=== PATIENT | female | born 1980 | race African-American/Black ===

== ENCOUNTER → 2016-04-02 | Outpatient (CLI) | payer OTHER | LOC: WI 09:08 | PROVIDERS: ATTEND Nurse Practitioner Psychiatric/Mental Health | DX: Z12.31 Encounter for screening mammogram for malignant neoplasm of breast (principal) | CPT/HCPCS: 77067; G0202 ==

== ENCOUNTER → 2018-06-08 | Outpatient (CLI) | payer OTHER ==
--- NOTE | 2018-06-08 19:59 | RADIOLOGY REPORT (SQ) ---
EXAM DESCRIPTION: CT ABD/PELVIS WITH IV ORAL COMPLETED DATE/TIME: 06/08/2018 7:39 pm REASON FOR STUDY: R10.9 UNSPECIFIED ABDOMINAL PAIN R10.9 UNSPECIFIED ABDOMINAL PAIN COMPARISON: CT stone survey 11/03/2008 TECHNIQUE: CT scan of the abdomen and pelvis performed using helical scanning technique with dynamic intravenous contrast injection. Patient drank oral contrast. Images reviewed with lung, soft tissue , and bone windows. Reconstructed coronal and sagittal MPR images reviewed. Delayed images for evalua tion of the urinary system also acquired. All images stored on PACS. All CT scanners at this facility use dose modulation, iterative reconstruction, and/or weight based d osing when appropriate to reduce radiation dose to as low as reasonably achievable (ALARA). [facility]: Dose Right [facility]: CareDose [facility]: Dose Right [facility]: Teradose 4D [facility]: [place] CONTRAST TYPE AND DOSE: contrast/concentration: Isovue 350.00 mg/ml; Total Contrast Delivered: 89.2 ml; Total Saline Delivered: 22.0 ml RENAL FUNCTION: Creatinine 0.5 RADIATION DOSE: CT Rad equipment meets quality standard of care and radiation dose reduction techniq ues were employed. CTDIvol: 10.7 - 13.6 mGy. DLP: 1317 mGy-cm.. LIMITATIONS: Suboptimal IV contrast bolus FINDINGS: LOWER CHEST: No significant findings. No nodules or infiltrates. LIVER: Normal size. No masses. No dilated ducts. SPLEEN: Normal size. No focal lesions. PANCREAS: No masses. No significant calcifications. No adjacent inflammation or peripancreatic fluid collections. Pancreatic duct not dilated. GALLBLADDER: Surgically absent ADRENAL GLANDS: No significant masses or asymmetry. RIGHT KIDNEY AND URETER: No solid masses. No significant calcifications. No hydronephrosis or hyd roureter. LEFT KIDNEY AND URETER: No solid masses. No significant calcifications. No hydronephrosis or hydr oureter. AORTA AND VESSELS: No aneurysm. No dissection. Renal arteries, SMA, celiac without stenosis. RETROPERITONEUM: No retroperitoneal adenopathy, hemorrhage or masses. BOWEL AND PERITONEAL CAVITY: Post gastric bypass. Patient drank oral contrast which is mostly in non distended small bowel loops. Small amount of stool throughout the colon. No free intraperitoneal ai r or fluid or CT signs of bowel obstruction or diverticulitis APPENDIX: Normal best shown on coronal image 38 and 39 PELVIS: No mass. No free fluid. Normal bladder. Normal size female pelvic organs ABDOMINAL WALL: No masses. No hernias. BONES: No significant or acute findings. OTHER: No other significant finding. IMPRESSION: NO SIGNIFICANT OR ACUTE FINDING IN THE ABDOMEN OR PELVIS ON CT SCAN WITH IV CONTRAST. TECHNICAL DOCUMENTATION: JOB ID: [id number] Quality ID # [id number]: Final reports with documentation of one or more dose reduction techniques (e.g., Au tomated exposure control, adjustment of the mA and/or kV according to patient size, use of iterative reconstruction technique) 2010 [employer]- All Rights Reserved Reading location - IP/workstation name: [email or web address]
== END ==
LOC: RAD 16:20
PROVIDERS: ATTEND Internal Medicine Geriatric Medicine
DX: R10.9 Unspecified abdominal pain (principal)
CPT/HCPCS: 74177

== ENCOUNTER → 2018-06-08 | Outpatient (CLI) | payer OTHER ==
[2018-06-08 17:43] LABS: ALANINE AMINOTRANSFERASE 27 U/L (9-52); ALKALINE PHOSPHATASE 45 U/L (38-126); AMYLASE 69 U/L (30-110); ANION GAP 9 (5-19); ASPARTATE AMINO TRANSFERASE 22 U/L (14-36); BILIRUBIN,DIRECT 0.2 mg/dL (0.0-0.4); BILIRUBIN,TOTAL 0.4 mg/dL (0.2-1.3); BLOOD UREA NITROGEN 12 mg/dL (7-20); CALCIUM 9.4 mg/dL (8.4-10.2); CARBON DIOXIDE 27 mmol/L (22-30); CHLORIDE 102 mmol/L (98-107); GLUCOSE 75 mg/dL (75-110); LIPASE 221.5 U/L (23-300); POTASSIUM 3.5 mmol/L (3.6-5.0); SODIUM 137.9 mmol/L (137-145); TOTAL PROTEIN 7.4 g/dL (6.3-8.2)
== END ==
LOC: OD 16:33
PROVIDERS: ATTEND Internal Medicine Geriatric Medicine
DX: R10.9 Unspecified abdominal pain (principal)
CPT/HCPCS: 36415; 80053; 82150; 83690

== ENCOUNTER → 2018-10-21 | Outpatient (CLI) | payer OTHER ==
--- NOTE | 2018-10-21 10:05 | RADIOLOGY REPORT (SQ) ---
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 TECHNIQUE: Static and dynamic grayscale images acquired of the aorta and stored on PACs. Selected co jeffy Doppler and spectral images recorded. LIMITATIONS: None. FINDINGS: AORTIC CALIBER MAXIMAL PROXIMAL: 2.4 cm. MID: 1.7 cm. DISTAL: 1.7 cm. ILIAC DIAMETER RIGHT: Obscured by overlying bowel gas. LEFT: Obscured by overlying bowel gas. OTHER: No other significant finding. IMPRESSION: NO ABDOMINAL AORTIC ANEURYSM. COMMENT: Aortic aneurysm imaging followup: Negative, no followup necessary. *Based upon the Society for Vascular Surgery Guidelines: J Vasc Surg. 2009 Oct;50(4 Suppl):S2-49 *For aortas of maximum diameter of 2.6-2.9 cm meeting the criteria for AAA (?1.5 x proximal normal se gment) TECHNICAL DOCUMENTATION: JOB ID: [id number] [employer]- All Rights Reserved Reading location - IP/workstation name: [email or web address]
== END ==
LOC: RAD 09:13
PROVIDERS: ATTEND Internal Medicine Geriatric Medicine
DX: Z13.6 Encounter for screening for cardiovascular disorders (principal); E11.43 Type 2 diabetes mellitus with diabetic autonomic (poly)neuropathy
CPT/HCPCS: 76706

== ENCOUNTER 2019-01-18 01:48 | Emergency (ER) | payer OTHER ==
[2019-01-18 02:28] LABS: APPEARANCE,URINE CLEAR; BILIRUBIN,URINE NEGATIVE (NEGATIVE); COLOR,URINE YELLOW; GLUCOSE, URINE NEGATIVE (NEGATIVE); KETONES,URINE NEGATIVE (NEGATIVE); LEUKOCYTE ESTERASE,URINE NEGATIVE (NEGATIVE); NITRITE,URINE NEGATIVE (NEGATIVE); PROTEIN,URINE NEGATIVE (NEGATIVE); URINE SPECIFIC GRAVITY 1.028; UROBILINOGEN,URINE NEGATIVE mg/dL (<2.0)
[2019-01-18 02:30] LABS: ABSOLUTE EOSINOPHILS # (AUTO) 0.1 10^3/uL (0.0-0.6); ABSOLUTE LYMPHOCYTES (AUTO) 2.3 10^3/uL (0.5-4.7); ABSOLUTE MONOCYTES (AUTO) 0.6 10^3/uL (0.1-1.4); ABSOLUTE NEUT (AUTO) 2.6 10^3/uL (1.7-8.2); BASOPHILS % (AUTO) 0.7 % (0-2); EOSINOPHILS % (AUTO) 2.4 % (0-6); HEMATOCRIT 37.7 % (36.0-47.0); HEMOGLOBIN 12.7 g/dL (12.0-15.5); LYMPHOCYTES % (AUTO) 39.9 % (13-45); MEAN CORPUSCULAR HGB CONC 33.6 g/dL (32.0-36.0); MEAN CORPUSCULAR VOLUME 92 fl (80-97); MONOCYTES % (AUTO) 10.8 % (3-13); PLATELET COUNT 164 10^3/uL (150-450); SEGMENTED NEUTROPHILS % (AUTO) 46.2 % (42-78); TOTAL CELLS COUNTED % (AUTO) 100 %; WHITE BLOOD COUNT 5.7 10^3/uL (4.0-10.5)
[2019-01-18 02:42] LABS: ALBUMIN 3.8 g/dL (3.5-5.0); ALKALINE PHOSPHATASE 54 U/L (38-126); ASPARTATE AMINO TRANSFERASE 23 U/L (14-36); BILIRUBIN,DIRECT 0.1 mg/dL (0.0-0.4); BILIRUBIN,TOTAL 0.3 mg/dL (0.2-1.3); BLOOD UREA NITROGEN 14 mg/dL (7-20); CALCIUM 9.2 mg/dL (8.4-10.2); POTASSIUM 3.8 mmol/L (3.6-5.0); TOTAL PROTEIN 6.9 g/dL (6.3-8.2)
[2019-01-18 02:47] LABS: CARBON DIOXIDE 26 mmol/L (22-30); CHLORIDE 109 mmol/L (98-107)
[2019-01-18 02:50] LABS: GLUCOSE 57 mg/dL (75-110)
[2019-01-18 02:51] LABS: ANION GAP 5 (5-19)
[2019-01-18] MEDS ORDERED: DEXTROSE 50%-WATER 25 GM/50 ML DISP.SYRIN IV ONE (03:01)
--- NOTE | 2019-01-18 05:49 | ER Document Report ---
ED General - General Chief Complaint: Abdominal Pain Stated Complaint: ABDOMINAL PAIN Time Seen by Provider: 01/18/19 05:01 Primary Care Provider: NGUYỄN RUBIN MD [Primary Care Provider] - Follow up as needed Notes: 39-year-old female presents emergency department stating that she is "sick". Patient states that she is been having abdominal pain for the past 6 days that she states has been fluctuating and moving around her abdomen. States that it is migratory and unchanged with Mylanta, Leonor-[place] or Pepto-Bismol. She also tried Xifan which she takes for her IBS and it did not help. Denies any vomitin g, fevers, chills, diarrhea or blood in her stool. States that it actually felt somewhat better this evening so she went out but when she got home she started feeling worse. The pain does worsen with food, she has a decreased appetite. Secondarily patient wants to know why she is having night sweats and increased acne. Patient states that this is been going on for over a month and her primary care physician Dr. Rubin has not been able to tell her why it is been going on. TRAVEL OUTSIDE OF THE [place] IN LAST 30 DAYS: No - Related Data Allergies/Adverse Reactions: sertraline HCl [From [email or web address]] Allergy (Verified 02/28/13 14:37) Hives, shortness of breath, diarrhea, vomiting, chest pain Home Medications: duloxetine 60 mg qday. pregabalin 75 mg qday Past Medical History - General Information source: Patient - Social History Smoking Status: Current Some Day Smoker - Occasional cigar Frequency of alcohol use: None Drug Abuse: Marijuana Family History: Reviewed & Not Pertinent Patient has suicidal ideation: No Patient has homicidal ideation: No - Past Medical History Cardiac Medical History: Reports: Hx Hypertension Neurological Medical History: Reports: Hx Migraine Endocrine Medical History: Reports: Hx Diabetes Mellitus Type 2 GI Medical History: Reports: Hx Gastroesophageal Reflux Disease Psychiatric Medical History: Reports: Hx Depression Past Surgical History: Reports: Hx Breast Surgery - lumpectomy left breast, Hx Cholecystectomy, Hx Gastric Bypass Surgery - Immunizations Hx Diphtheria, Pertussis, Tetanus Vaccination: Yes - 2009 Review of Systems - Review of Systems Constitutional: See HPI, Diaphoresis EENT: No symptoms reported Gastrointestinal: See HPI -: Yes All other systems reviewed and negative Physical Exam - Vital signs Vitals: Temp Pulse Resp BP Pulse Ox 97.8 F 68 18 133/65 H 98 01/18/19 01:52 01/18/19 01:52 01/18/19 01:52 01/18/19 01:52 01/18/19 01:52 Interpretation: Normal - Notes Notes: GENERAL: Alert, interacts well. No acute distress. HEAD: Normocephalic, atraumatic EYES: Pupils equal, round and reactive to light, extraocular movements intact. ENT: Oral mucosa moist, tongue midline. NECK: Full range of motion, supple, trachea midline. LUNGS: Clear to auscultation bilaterally, no wheezes, rales or rhonchi, no res piratory distress. HEART: Regular rate and rhythm, no murmurs, gallops, rubs. ABDOMEN: Soft, mild epigastric tenderness palpation, nondistended, bowel sounds present in all 4 quadrants. EXTREMITIES: Moves all 4 extremities spontaneously, no edema, radial and dorsalis pedis pulses 2/4 bilaterally. No cyanosis. NEUROLOGICAL: Alert and oriented x3, normal speech. PSYCH: Normal mood, normal affect. SKIN: Warm, Dry, normal turgor, small amount of acne on the face. Course - Re-evaluation Re-evalutation: 01/18/19 05:50 CBC unremarkable, CMP shows glucose low glucose of 57, patient was in no acute distress, able to tolerate crackers and peanut butter without difficulty, CMP otherwise unremarkable, lipase elevated at 518, test negative, urinalysis negative for blood or infection. Patient does not have a gallbladder. Patient admits history of prior peptic ulcer disease. Patient is given advice on low acid diet, using Carafate and Pepcid but also given information on mild pancreatitis and following a low-fat diet. Patient is agreeable to following both of these plans. Discharged home. - Vital Signs Vital signs: Temp Pulse Resp BP Pulse Ox 97.8 F 68 18 133/65 H 98 01/18/19 01:52 01/18/19 01:52 01/18/19 01:52 01/18/19 01:52 01/18/19 01:52 - Laboratory Result Diagrams: 01/18/19 02:14 01/18/19 02:14 Laboratory results interpreted by me: 01/18/19 01/18/19 01/18/19 02:14 02:14 02:14 RDW 15.0 H Chloride 109 H Glucose 57 L POC Glucose Lipase 518.9 H Urine Ascorbic Acid 40 H 01/18/19 03:53 RDW Chloride Glucose POC Glucose 182 H Lipase Urine Ascorbic Acid Discharge - Discharge Clinical Impression: Pancreatitis Qualifiers: Chronicity: acute Pancreatitis type: unspecified pancreatitis type Acute pancreatitis complication: no infection or necrosis Qualified Code(s): K85.90 - Acute pancreatitis without necrosis or infection, unspecified Condition: Stable Disposition: HOME, SELF-CARE Additional Instructions: Pancreatitis Pancreatitis is an inflammation of the pancreas, an organ at the back of your abdomen. The pancreas produces insulin and enzymes that digest your food. Pancreatitis can be caused by gallstones in the bile duct, by alcohol or viruses, or by excess fat or calcium in the blood stream. Occasionally, pancreatitis occurs when a stomach ulcer vernon through into the pancreas. We try to find the cause of pancreatitis, but some tests can't be done until the pancreas heals. The usual symptoms of pancreatitis are pain in the pit of the stomach that goes straight through to the back, vomiting, and low-grade fever. Severe cases require hospital admission, but many patients with mild pancreatitis do well at home. You will probably need medicine for pain and for vomiting. Sometimes we prescribe medicine to decrease stomach acid secretion and to decrease flow of pancreatic juices. Start with a diet of clear liquids (soda pop, juices). When the pain is decreasing, you can add some simple starches (potato, toast, applesauce). Avoid proteins and fats until you are completely painfree. When you're better, your doctor may suggest treatment to prevent future pancreatitis (such as gallbladder removal). Avoid alcohol forever. Get immediate treatment for any future episodes. Contact your doctor at once or return here if you have increasing pain, shortness of breath, general swelling, increasing size of the abdomen, continued vomiting, muscle spasms, or other new symptoms. Sometimes an ulcer can mimic mild pancreatitis. Please take Pepcid 20 mg twice a day for the next 4 weeks. Please also take the Carafate before every meal. Wait at least an hour after taking your regular medications to take the Carafate or ulcer your regular medications will not absorb. Avoid those foods that bring on your symptoms. For many people, these foods are coffee, chocolate, onions, garlic, and carbonated drinks. Don't use alcohol, aspirin, caffeine, or tobacco. Don't eat late at night -- within 4 hours of bedtime. Don't over-eat. If necessary, elevate the head of your bed about 4 inches so that stomach acid will not roll up into your esophagus. Call the doctor if you develop severe chest pain, inability to swallow fluids, fever, or worsening symptoms. Prescriptions: Ondansetron [Zofran Odt 4 mg Tablet] 1 - 2 tab PO Q4HP PRN #10 tab.rapdis PRN Reason: Sucralfate [Carafate 1 gm Tablet] 1 gm PO ACHS #120 tablet Famotidine [Pepcid 20 mg Tablet] 20 mg PO BID #60 tablet Referrals: NGUYỄN RUBIN MD [Primary Care Provider] - Follow up as needed
[2019-01-18 06:29] VITALS: BP 111/62
== END 2019-01-18 06:30 | disposition home or self-care (01) ==
LOC: ER 01:48
DX: K85.90 Acute pancreatitis without necrosis or infection, unspecified (principal); K58.9 Irritable bowel syndrome, unspecified; R10.9 Unspecified abdominal pain; R10.816 Epigastric abdominal tenderness; R61 Generalized hyperhidrosis; R63.0 Anorexia; L70.9 Acne, unspecified; I10 Essential (primary) hypertension; E11.9 Type 2 diabetes mellitus without complications; F32.9 Major depressive disorder, single episode, unspecified; Z79.899 Other long term (current) drug therapy; Z90.49 Acquired absence of other specified parts of digestive tract; Z87.11 Personal history of peptic ulcer disease; Z88.8 Allergy status to other drugs, medicaments and biological substances
CPT/HCPCS: 99284; 96374; 36415; 82962; 83690; 85025; 81025; 80053; 81001; J3490

== ENCOUNTER 2019-01-23 15:51 | Inpatient (IN) | payer OTHER ==
[2019-01-23] MEDS: ENOXAPARIN SODIUM INJ 40 MG/0.4 ML DISP.SYRIN SUBCUT SCH (16:50)
[2019-01-23] MEDS ORDERED: GLUCAGON,HUMAN RECOMB 1 MG INJ IM PRN (17:00)
[2019-01-23] MEDS ORDERED: DEXTROSE 40% GEL 15 GM TUBE X 2 PO PRN (17:00)
[2019-01-23] MEDS ORDERED: DEXTROSE 50%-WATER SYRINGE 12.5 GM/25 ML DOSE IV PRN (17:00)
[2019-01-23] MEDS ORDERED: DEXTROSE 50%-WATER SYRINGE 25 GM/50 ML DOSE IV PRN (17:00)
[2019-01-23] MEDS ORDERED: DEXTROSE 40% GEL 15 GM TUBE PO PRN (17:00)
[2019-01-23] MEDS: PANTOPRAZOLE SODIUM 40 MG TABLET.DR PO SCH (17:04)
[2019-01-23 17:09] LABS: ABSOLUTE EOSINOPHILS # (AUTO) 0.1 10^3/uL (0.0-0.6); ABSOLUTE LYMPHOCYTES (AUTO) 1.9 10^3/uL (0.5-4.7); ABSOLUTE MONOCYTES (AUTO) 0.6 10^3/uL (0.1-1.4); ABSOLUTE NEUT (AUTO) 3.4 10^3/uL (1.7-8.2); BASOPHILS % (AUTO) 0.4 % (0-2); HEMATOCRIT 35.4 % (36.0-47.0); HEMOGLOBIN 11.6 g/dL (12.0-15.5); LYMPHOCYTES % (AUTO) 31.7 % (13-45); MEAN CORPUSCULAR HEMOGLOBIN 30.3 pg (27.0-33.4); MEAN CORPUSCULAR HGB CONC 32.9 g/dL (32.0-36.0); MEAN CORPUSCULAR VOLUME 92 fl (80-97); PLATELET COUNT 142 10^3/uL (150-450); RED BLOOD COUNT 3.85 10^6/uL (3.72-5.28); RED CELL DISTRIBUTION WIDTH 14.8 % (11.5-14.0); SEGMENTED NEUTROPHILS % (AUTO) 56.9 % (42-78); TOTAL CELLS COUNTED % (AUTO) 100 %
[2019-01-23 17:30] LABS: ALBUMIN 3.3 g/dL (3.5-5.0); ALKALINE PHOSPHATASE 49 U/L (38-126); AMYLASE 73 U/L (30-110); ASPARTATE AMINO TRANSFERASE 20 U/L (14-36); BILIRUBIN,TOTAL 0.3 mg/dL (0.2-1.3); BLOOD UREA NITROGEN 7 mg/dL (7-20); CALCIUM 8.6 mg/dL (8.4-10.2); GLUCOSE 72 mg/dL (75-110); POTASSIUM 3.7 mmol/L (3.6-5.0); TOTAL PROTEIN 6.3 g/dL (6.3-8.2)
[2019-01-23 17:52] LABS: ANION GAP 4 (5-19); CHLORIDE 104 mmol/L (98-107)
[2019-01-23 17:53] LABS: CARBON DIOXIDE 30 mmol/L (22-30)
[2019-01-23] MEDS: INSULIN LISPRO 100 UNIT/ML 3 ML VIAL SUBCUT SCH (18:27)
[2019-01-23] MEDS: MORPHINE SULFATE 10 MG/ML INJ IV PRN ×2 (18:32→21:47)
[2019-01-23] MEDS: DEXTROSE 5%-1/2 NORMAL SALINE 1,000 ML IV PRN (18:32)
[2019-01-23] MEDS: ONDANSETRON HCL INJ/PF 4 MG/2 ML SDV IV PRN (19:41)
--- NOTE | 2019-01-23 23:22 | PDOC H&P ---
History of Present Illness Admission Date/PCP: 01/23/19 15:51 NGUYỄN RUBIN Patient complains of: Abdominal pain History of Present Illness: JESUS HER is a 39 year old female patient known to my practice who presented to the office earlier today as per directive from her recent ED visit on 01/18/2019 for abdominal pain, nausea, and intermittent episodes of vomiting. Her elevation in the ED revealed ongoing symptoms for about 6 days prior to her presentation and self medicating with [id number] medication including Mylanta, Pepto-Bismol, and Leonor-[place] without benefit. Patient reported concern about flare up of her IBS with diarrhea for which she took Xifaxan without relief. She reported to the office today with compliant about no symptom relief and worsening abdominal pain, poor appetite, nausea, and occasional vomiting. She denied any fever but admitted to chills. No diaphoresis. Her ED visit did revealed elevated serum lipase level. I was concern about worsening acute pancreatitis and she was advised hospitalization for further evaluation and management. She denied any alcohol, unusual food or liquid intake, or illicit drug ingestion. Her morbidities are as listed below. Past Medical History Cardiac Medical History: Reports: Hypertension Neurological Medical History: Reports: Migraine Endocrine Medical History: Reports: Diabetes Mellitus Type 2 GI Medical History: Reports: Gastroesophageal Reflux Disease Psychiatric Medical History: Reports: Depression Hematology: Reports: Anemia Past Surgical History Past Surgical History: Reports: Cholecystectomy, Gastric Bypass Surgery Social History Smoking Status: Former Smoker Electronic Cigarette use?: No Last Time Smoked: 2017. Frequency of Alcohol Use: Rare Hx Recreational Drug Use: No Drugs: None Hx Prescription Drug Abuse: No Family History Family History: Reviewed & Not Pertinent Parental Family History Reviewed: Yes Children Family History Reviewed: Yes Sibling(s) Family History Reviewed.: Yes Medication/Allergy Home Medications: Ascorbic Acid [Vitamin C 500 mg Tablet] 500 mg PO DAILY 01/23/19 Duloxetine HCl [Cymbalta 30 mg Capsule.dr] 60 mg PO DAILY 01/23/19 Multivitamin [Tab-A-Nereida (Multiple Vitamin) Tablet] 1 tab PO DAILY 01/23/19 Pregabalin 75 mg PO Q12 01/23/19 Ubidecarenone/Vit E Acet [Co Q-10 100 mg Softgel] 1 cap PO DAILY 01/23/19 Vitamin E (Dl, Acetate) [Vitamin E 400 Unit Capsule] 400 unit PO DAILY 01/23/19 Allergies/Adverse Reactions: sertraline HCl [From Zoloft] Allergy (Verified 02/28/13 14:37) Hives, shortness of breath, diarrhea, vomiting, chest pain Review of Systems Constitutional: PRESENT: anorexia, chills Eyes: ABSENT: visual disturbances, other Ears: ABSENT: hearing changes Nose, Mouth, and Throat: ABSENT: headache(s), mouth pain, sore throat, vertigo Cardiovascular: ABSENT: chest pain, dyspnea on exertion, edema, orthropnea, palpitations Respiratory: ABSENT: cough, hemoptysis Gastrointestinal: PRESENT: abdominal pain, diarrhea, nausea, vomiting. ABSENT: constipation, hematemesis, hematochezia Genitourinary: ABSENT: dysuria, hematuria Musculoskeletal: ABSENT: joint swelling Integumentary: ABSENT: rash, wounds Neurological: ABSENT: abnormal gait, abnormal speech, confusion, dizziness, focal weakness, syncope Psychiatric: ABSENT: anxiety, depression, homidical ideation, suicidal ideation Endocrine: ABSENT: cold intolerance, heat intolerance, polydipsia, polyuria Hematologic/Lymphatic: ABSENT: easy bleeding, easy bruising, lymphadenopathy Physical Exam Vital Signs: Temp Pulse Resp BP Pulse Ox 98.1 F 59 L 17 123/84 100 01/23/19 16:14 01/23/19 19:00 01/23/19 16:14 01/23/19 16:14 01/23/19 16:14 Intake & Output 01/22/19 01/23/19 01/24/19 06:59 06:59 06:59 Intake Total 0 Output Total 0 Balance 0 Weight 82.7 kg General appearance: PRESENT: mild distress - due to abdominal pain, obese Head exam: PRESENT: atraumatic, normocephalic Eye exam: PRESENT: conjunctiva pink, EOMI, PERRLA. ABSENT: scleral icterus Ear exam: PRESENT: normal external ear exam Mouth exam: PRESENT: moist - fair Neck exam: PRESENT: full ROM. ABSENT: JVD, lymphadenopathy, thyromegaly Respiratory exam: PRESENT: clear to auscultation julissa Cardiovascular exam: PRESENT: RRR. ABSENT: diastolic murmur, rubs, systolic murmur Vascular exam: PRESENT: normal capillary refill. ABSENT: pallor GI/Abdominal exam: PRESENT: normal bowel sounds, soft, tenderness - to deep palpation over upper quadrant regions. ABSENT: distended, guarding, mass, organolmegaly, rebound Rectal exam: PRESENT: deferred Musculoskeletal exam: ABSENT: full ROM, normal inspection, tenderness Neurological exam: PRESENT: alert, awake, oriented to person, oriented to place, oriented to time, oriented to situation, CN II-XII grossly intact. ABSENT: motor sensory deficit Psychiatric exam: PRESENT: appropriate affect, normal mood. ABSENT: homicidal ideation, suicidal ideation Skin exam: PRESENT: dry, warm Results Laboratory Results: 01/23/19 16:45 01/23/19 16:45 01/23/19 01/23/19 16:45 16:45 WBC 6.0 RBC 3.85 Hgb 11.6 L Hct 35.4 L MCV 92 MCH 30.3 MCHC 32.9 RDW 14.8 H Plt Count 142 L Seg Neutrophils % 56.9 Sodium 137.9 Potassium 3.7 Chloride 104 Carbon Dioxide 30 Anion Gap 4 L BUN 7 Creatinine 0.50 L Est GFR ( Amer) > 60 Glucose 72 L Calcium 8.6 Total Bilirubin 0.3 AST 20 Alkaline Phosphatase 49 Total Protein 6.3 Albumin 3.3 L Amylase 73 Lipase 324.2 H Assessment & Plan - Diagnosis (1) Acute pancreatitis Qualifiers: Acute pancreatitis complication: unspecified Is this a current diagnosis for this admission?: Yes Plan: See admitting attending physician orders for details about care plan. (2) HTN (hypertension) Qualifiers: Hypertension type: essential hypertension Qualified Code(s): I10 - Essential (primary) hypertension Is this a current diagnosis for this admission?: Yes Plan: See admitting attending physician orders for details about care plan. (3) Diabetes mellitus type 2 in obese Is this a current diagnosis for this admission?: Yes Plan: See admitting attending physician orders for details about care plan. (4) GERD (gastroesophageal reflux disease) Qualifiers: Esophagitis presence: esophagitis presence not specified Qualified Code(s): K21.9 - Gastro-esophageal reflux disease without esophagitis Is this a current diagnosis for this admission?: Yes Plan: See admitting attending physician orders for details about care plan. (5) Depression Qualifiers: Depression Type: unspecified Qualified Code(s): F32.9 - Major depressive disorder, single episode, unspecified Is this a current diagnosis for this admission?: Yes Plan: See admitting attending physician orders for details about care plan. (6) Migraine aura without headache Is this a current diagnosis for this admission?: Yes Plan: See admitting attending physician orders for details about care plan. - Time Time Spent: 50 to 70 Minutes Medications reviewed and adjusted accordingly: Yes Anticipated discharge: Home - Inpatient Certification Based on my medical assessment, after consideration of the patient's comorbidities, presenting symptoms, or acuity I expect that the services needed warrant INPATIENT care.: Yes I certify that my determination is in accordance with my understanding of Medicare's requirements for reasonable and necessary INPATIENT services [42 CFR 412.3e].: Yes Medical Necessity: Significant Comorbidiites Make Outpatient Treatment Too Risky, Need Close Monitoring Due to Risk of Patient Decompensation, Need For IV Fluids, Need For Continuous Telemetry Monitoring, Risk of Complication if Not Cared For in Hospital, Risk of Diagnosis Which Will Require Inpatient Eval/Care/Monitoring Post Hospital Care: D/C Manufacturing Technologist Documentation - Plan Summary Plan Summary: See admitting attending physician orders for details about care plan.
[2019-01-24] MEDS: INSULIN LISPRO 100 UNIT/ML 3 ML VIAL SUBCUT SCH ×4 (00:15→18:23)
[2019-01-24] MEDS: ONDANSETRON HCL INJ/PF 4 MG/2 ML SDV IV PRN ×5 (00:24→23:55)
[2019-01-24] MEDS: MORPHINE SULFATE 10 MG/ML INJ IV PRN ×2 (01:34→05:29)
[2019-01-24] MEDS: DEXTROSE 5%-1/2 NORMAL SALINE 1,000 ML IV PRN ×2 (05:33→14:49)
[2019-01-24 05:39] LABS: ABSOLUTE EOSINOPHILS # (AUTO) 0.1 10^3/uL (0.0-0.6); ABSOLUTE LYMPHOCYTES (AUTO) 2.2 10^3/uL (0.5-4.7); ABSOLUTE MONOCYTES (AUTO) 0.6 10^3/uL (0.1-1.4); ABSOLUTE NEUT (AUTO) 2.8 10^3/uL (1.7-8.2); BASOPHILS % (AUTO) 0.3 % (0-2); EOSINOPHILS % (AUTO) 1.6 % (0-6); HEMOGLOBIN 11.8 g/dL (12.0-15.5); LYMPHOCYTES % (AUTO) 38.9 % (13-45); MEAN CORPUSCULAR HEMOGLOBIN 30.6 pg (27.0-33.4); MEAN CORPUSCULAR HGB CONC 33.6 g/dL (32.0-36.0); MEAN CORPUSCULAR VOLUME 91 fl (80-97); MONOCYTES % (AUTO) 10.3 % (3-13); PLATELET COUNT 130 10^3/uL (150-450); RED BLOOD COUNT 3.85 10^6/uL (3.72-5.28); RED CELL DISTRIBUTION WIDTH 14.7 % (11.5-14.0); SEGMENTED NEUTROPHILS % (AUTO) 48.9 % (42-78); TOTAL CELLS COUNTED % (AUTO) 100 %; WHITE BLOOD COUNT 5.6 10^3/uL (4.0-10.5)
[2019-01-24] MEDS ORDERED: DIPHENHYDRAMINE HCL 50 MG/ML VIAL ONE (05:43)
[2019-01-24 05:54] LABS: ALBUMIN 3.3 g/dL (3.5-5.0); ALKALINE PHOSPHATASE 47 U/L (38-126); AMYLASE 70 U/L (30-110); ANION GAP 5 (5-19); ASPARTATE AMINO TRANSFERASE 40 U/L (14-36); BILIRUBIN,TOTAL 0.5 mg/dL (0.2-1.3); BLOOD UREA NITROGEN 4 mg/dL (7-20); CALCIUM 8.5 mg/dL (8.4-10.2); CARBON DIOXIDE 30 mmol/L (22-30); CHLORIDE 102 mmol/L (98-107); GLUCOSE 76 mg/dL (75-110); POTASSIUM 3.4 mmol/L (3.6-5.0); TOTAL PROTEIN 6.2 g/dL (6.3-8.2)
[2019-01-24] MEDS ORDERED: DIPHENHYDRAMINE HCL 50 MG/ML VIAL IV ONE (06:00)
--- NOTE | 2019-01-24 08:52 | RADIOLOGY REPORT (SQ) ---
EXAM DESCRIPTION: CT ABD/PELVIS WITH IV ORAL COMPLETED DATE/TIME: 01/23/2019 7:34 pm REASON FOR STUDY: acute pancreatitis COMPARISON: 06/08/2018 TECHNIQUE: CT scan of the abdomen and pelvis performed using helical scanning technique with dynamic intravenous contrast injection. No oral contrast. Images reviewed with lung, soft tissue, and bone windows. Reconstructed coronal and sagittal MPR images reviewed. Delayed images for evaluation of the urinary system also acquired. All images stored on PACS. All CT scanners at this facility use dose modulation, iterative reconstruction, and/or weight based d osing when appropriate to reduce radiation dose to as low as reasonably achievable (ALARA). [facility]: Dose Right [facility]: CareDose [facility]: Dose Right [facility]: Teradose 4D [facility]: Therative CONTRAST TYPE AND DOSE: contrast/concentration: Isovue 350.00 mg/ml; Total Contrast Delivered: 94.0 ml; Total Saline Delivered: 71.0 ml RENAL FUNCTION: BUN 7, creatinine 0.50 RADIATION DOSE: CT Rad equipment meets quality standard of care and radiation dose reduction techniq ues were employed. CTDIvol: 9.6 - 12.5 mGy. DLP: 1217 mGy-cm.. LIMITATIONS: Lack of intra and retroperitoneal fat. FINDINGS: LOWER CHEST: No significant findings. No nodules or infiltrates. LIVER: Normal size. No masses. No dilated ducts. SPLEEN: Normal size. No focal lesions. PANCREAS: No masses. No significant calcifications. No adjacent inflammation or peripancreatic fluid collections. Pancreatic duct not dilated. GALLBLADDER: Surgically absent. ADRENAL GLANDS: No significant masses or asymmetry. RIGHT KIDNEY AND URETER: No solid masses. No significant calcifications. No hydronephrosis or hyd roureter. LEFT KIDNEY AND URETER: No solid masses. No significant calcifications. No hydronephrosis or hydr oureter. AORTA AND VESSELS: No aneurysm. No dissection. Renal arteries, SMA, celiac without stenosis. RETROPERITONEUM: No retroperitoneal adenopathy, hemorrhage or masses. BOWEL AND PERITONEAL CAVITY: No masses or inflammatory changes. No free fluid or peritoneal masses. APPENDIX: Normal. PELVIS: There is a small amount of free fluid the pelvis. ABDOMINAL WALL: No masses. No hernias. BONES: No significant or acute findings. OTHER: No other significant finding. IMPRESSION: Limited study due to lack of intra or retroperitoneal fat. There is a small amount of f ree fluid the pelvis. This is nonspecific. No CT evidence of acute pancreatitis. TECHNICAL DOCUMENTATION: JOB ID: [id number] Quality ID # [id number]: Final reports with documentation of one or more dose reduction techniques (e.g., Au tomated exposure control, adjustment of the mA and/or kV according to patient size, use of iterative reconstruction technique) 2010 [employer]- All Rights Reserved Reading location - IP/workstation name: [email or web address]
[2019-01-24] MEDS: POTASSI CL 20 MEQ/50 ML RIDER 20 MEQ/50 ML RTUPB IV SCH ×3 (09:31→14:49)
[2019-01-24] MEDS: ENOXAPARIN SODIUM INJ 40 MG/0.4 ML DISP.SYRIN SUBCUT SCH (09:32)
[2019-01-24] MEDS: PANTOPRAZOLE SODIUM 40 MG TABLET.DR PO SCH (09:32)
[2019-01-24] MEDS: OXYCODONE-ACETAMINOPHEN 5-325 MG TABLET PO PRN ×4 (10:48→23:55)
[2019-01-24] MEDS ORDERED: SIMETHICONE 80 MG TAB.CHEW PO ONE (23:30)
[2019-01-25] MEDS: INSULIN LISPRO 100 UNIT/ML 3 ML VIAL SUBCUT SCH ×4 (03:26→18:00)
[2019-01-25 05:07] LABS: ABSOLUTE EOSINOPHILS # (AUTO) 0.2 10^3/uL (0.0-0.6); ABSOLUTE LYMPHOCYTES (AUTO) 1.8 10^3/uL (0.5-4.7); ABSOLUTE MONOCYTES (AUTO) 0.5 10^3/uL (0.1-1.4); ABSOLUTE NEUT (AUTO) 2.1 10^3/uL (1.7-8.2); BASOPHILS % (AUTO) 0.6 % (0-2); EOSINOPHILS % (AUTO) 4.7 % (0-6); HEMATOCRIT 36.1 % (36.0-47.0); LYMPHOCYTES % (AUTO) 37.6 % (13-45); MEAN CORPUSCULAR HEMOGLOBIN 30.2 pg (27.0-33.4); MEAN CORPUSCULAR HGB CONC 33.2 g/dL (32.0-36.0); MEAN CORPUSCULAR VOLUME 91 fl (80-97); MONOCYTES % (AUTO) 11.7 % (3-13); PLATELET COUNT 130 10^3/uL (150-450); RED BLOOD COUNT 3.97 10^6/uL (3.72-5.28); RED CELL DISTRIBUTION WIDTH 14.6 % (11.5-14.0); SEGMENTED NEUTROPHILS % (AUTO) 45.4 % (42-78); TOTAL CELLS COUNTED % (AUTO) 100 %; WHITE BLOOD COUNT 4.7 10^3/uL (4.0-10.5)
[2019-01-25 05:34] LABS: BLOOD UREA NITROGEN 3 mg/dL (7-20); CALCIUM 8.8 mg/dL (8.4-10.2); CARBON DIOXIDE 29 mmol/L (22-30); CHLORIDE 105 mmol/L (98-107); GLUCOSE 92 mg/dL (75-110); POTASSIUM 3.6 mmol/L (3.6-5.0)
[2019-01-25 05:41] LABS: ANION GAP 5 (5-19)
[2019-01-25] MEDS: ENOXAPARIN SODIUM INJ 40 MG/0.4 ML DISP.SYRIN SUBCUT SCH (09:20)
[2019-01-25] MEDS: PANTOPRAZOLE SODIUM 40 MG TABLET.DR PO SCH (09:39)
[2019-01-25] MEDS: DEXTROSE 5%-1/2 NORMAL SALINE 1,000 ML IV PRN (09:39)
[2019-01-25 14:17] LABS: APPEARANCE,URINE CLEAR; BILIRUBIN,URINE NEGATIVE (NEGATIVE); COLOR,URINE COLORLESS; GLUCOSE, URINE NEGATIVE (NEGATIVE); KETONES,URINE NEGATIVE (NEGATIVE); LEUKOCYTE ESTERASE,URINE NEGATIVE (NEGATIVE); NITRITE,URINE NEGATIVE (NEGATIVE); PROTEIN,URINE NEGATIVE (NEGATIVE); URINE SPECIFIC GRAVITY 1.002; UROBILINOGEN,URINE NEGATIVE mg/dL (<2.0)
[2019-01-25] MEDS: OXYCODONE-ACETAMINOPHEN 5-325 MG TABLET PO PRN ×2 (18:41→22:24)
[2019-01-25] MEDS: SIMETHICONE 80 MG TAB.CHEW PO SCH (21:29)
[2019-01-26] MEDS: INSULIN LISPRO 100 UNIT/ML 3 ML VIAL SUBCUT SCH ×4 (04:40→17:24)
[2019-01-26] MEDS: PANTOPRAZOLE SODIUM 40 MG TABLET.DR PO SCH (09:10)
[2019-01-26] MEDS: ENOXAPARIN SODIUM INJ 40 MG/0.4 ML DISP.SYRIN SUBCUT SCH (09:10)
[2019-01-26] MEDS: SIMETHICONE 80 MG TAB.CHEW PO SCH ×3 (09:10→18:07)
[2019-01-26] MEDS: OXYCODONE-ACETAMINOPHEN 5-325 MG TABLET PO PRN (12:01)
[2019-01-26] MEDS: DEXTROSE 5%-1/2 NORMAL SALINE 1,000 ML IV PRN (18:07)
[2019-01-26] MEDS ORDERED: MAGNESIUM CITRATE 296 ML BOTTLE PO ONE (20:30)
--- NOTE | 2019-01-26 21:32 | PDOC PROGRESS REPORT ---
Subjective Progress Note for:: 01/24/19 Subjective:: Less intense abdominal pain. She reported fairly controlled abdominal pain on current treatment regimen. Her nausea is adequately controlled on IV Zofran. No vomiting. No fever, chills, chest pain or difficulty with breathing. Reason For Visit: ACUTE PANCREATITIS,H/O DIABETES MELLITUS WITH C Physical Exam Vital Signs: Temp Pulse Resp BP Pulse Ox 97.5 F 58 L 20 115/81 100 01/24/19 03:05 01/24/19 07:00 01/24/19 03:05 01/24/19 03:05 01/24/19 03:05 Intake & Output 01/23/19 01/24/19 01/25/19 06:59 06:59 06:59 Intake Total 1000 Output Total 0 Balance 1000 Weight 82.7 kg General appearance: PRESENT: no acute distress Head exam: PRESENT: atraumatic, normocephalic Eye exam: PRESENT: conjunctiva pink, EOMI, PERRLA. ABSENT: scleral icterus Ear exam: PRESENT: normal external ear exam Mouth exam: PRESENT: moist Respiratory exam: PRESENT: clear to auscultation julissa Cardiovascular exam: PRESENT: RRR. ABSENT: diastolic murmur, rubs, systolic murmur Vascular exam: ABSENT: pallor GI/Abdominal exam: PRESENT: normal bowel sounds, soft, tenderness - LUQ and epigastric region. ABSENT: distended, guarding, mass, organolmegaly, rebound Extremities exam: ABSENT: pedal edema Neurological exam: PRESENT: alert, awake, oriented to person, oriented to place, oriented to time, oriented to situation, CN II-XII grossly intact. ABSENT: motor sensory deficit Psychiatric exam: PRESENT: appropriate affect, normal mood. ABSENT: homicidal ideation, suicidal ideation Skin exam: PRESENT: dry, warm Results Laboratory Results: 01/24/19 04:13 01/24/19 04:13 01/23/19 01/23/19 01/24/19 16:45 16:45 04:13 WBC 6.0 5.6 RBC 3.85 3.85 Hgb 11.6 L 11.8 L Hct 35.4 L 35.0 L MCV 92 91 MCH 30.3 30.6 MCHC 32.9 33.6 RDW 14.8 H 14.7 H Plt Count 142 L 130 L Seg Neutrophils % 56.9 48.9 Sodium 137.9 Potassium 3.7 Chloride 104 Carbon Dioxide 30 Anion Gap 4 L BUN 7 Creatinine 0.50 L Est GFR ( Amer) > 60 Glucose 72 L Calcium 8.6 Total Bilirubin 0.3 AST 20 Alkaline Phosphatase 49 Total Protein 6.3 Albumin 3.3 L Amylase 73 Lipase 324.2 H 01/24/19 04:13 WBC RBC Hgb Hct MCV MCH MCHC RDW Plt Count Seg Neutrophils % Sodium 137.2 Potassium 3.4 L Chloride 102 Carbon Dioxide 30 Anion Gap 5 BUN 4 L Creatinine 0.48 L Est GFR ( Amer) > 60 Glucose 76 Calcium 8.5 Total Bilirubin 0.5 AST 40 H Alkaline Phosphatase 47 Total Protein 6.2 L Albumin 3.3 L Amylase 70 Lipase 205.3 Assessment & Plan - Diagnosis (1) Acute pancreatitis Qualifiers: Acute pancreatitis complication: unspecified Is this a current diagnosis for this admission?: Yes (2) HTN (hypertension) Qualifiers: Hypertension type: essential hypertension Qualified Code(s): I10 - Essential (primary) hypertension Is this a current diagnosis for this admission?: Yes (3) Diabetes mellitus type 2 in obese Is this a current diagnosis for this admission?: Yes (4) GERD (gastroesophageal reflux disease) Qualifiers: Esophagitis presence: esophagitis presence not specified Qualified Code(s): K21.9 - Gastro-esophageal reflux disease without esophagitis Is this a current diagnosis for this admission?: Yes (5) Depression Qualifiers: Depression Type: unspecified Qualified Code(s): F32.9 - Major depressive disorder, single episode, unspecified Is this a current diagnosis for this admission?: Yes (6) Migraine aura without headache Is this a current diagnosis for this admission?: Yes - Time Time Spent with patient: 25-34 minutes Medications reviewed and adjusted accordingly: Yes Anticipated discharge: Home Within: within 48 hours - Inpatient Certification Based on my medical assessment, after consideration of the patient's comorbidities, presenting symptoms, or acuity I expect that the services needed warrant INPATIENT care.: Yes I certify that my determination is in accordance with my understanding of Medicare's requirements for reasonable and necessary INPATIENT services [42 CFR 412.3e].: Yes Medical Necessity: Significant Comorbidiites Make Outpatient Treatment Too Risky, Need Close Monitoring Due to Risk of Patient Decompensation, Need For IV Fluids, Need for Pain Control, Risk of Complication if Not Cared For in Hospital, Risk of Diagnosis Which Will Require Inpatient Eval/Care/Monitoring Post Hospital Care: D/C Instructor Nurse Documentation - Plan Summary Plan Summary: Start on clear liquid diet with DM restrictions to level 4. D/C IV Morphine. Start on Percocet 5/325 mg p.o q 4 hours prn for pain management. Patient will receive potassium replacement therapy. Obtain Mag level. Repeat CBC with diff, BMP and Lipase level in AM.
--- NOTE | 2019-01-26 21:44 | PDOC PROGRESS REPORT ---
Subjective Progress Note for:: 01/25/19 Subjective:: Patient continue to express ongoing abdominal pain and episodes of nausea. She denied associated vomiting. Patient reported abdominal bloating and excess gas discomfort. No fever, chills, chest pain or difficulty with breathing. Reason For Visit: PERSISTENT ABDOMINAL PAIN, NAUSEA, ACUTE PANCREATI Physical Exam Vital Signs: Temp Pulse Resp BP Pulse Ox 98.2 F 68 16 110/78 100 01/26/19 11:19 01/26/19 14:00 01/26/19 11:19 01/26/19 11:19 01/26/19 11:19 Intake & Output 01/25/19 01/26/19 01/27/19 06:59 06:59 06:59 Intake Total 4968 3335 1280 Balance 4968 3335 1280 Weight 80.7 kg 80.3 kg Physical Exam: General appearance: PRESENT: no acute distress Head exam: PRESENT: atraumatic, normocephalic Eye exam: PRESENT: conjunctiva pink. ABSENT: pallor, scleral icterus Ear exam: PRESENT: normal external ear exam Mouth exam: PRESENT: moist Respiratory exam: PRESENT: clear to auscultation julissa Cardiovascular exam: PRESENT: RRR. ABSENT: diastolic murmur, rubs, systolic murmur GI/Abdominal exam: PRESENT: normal bowel sounds, soft, tenderness - epigastric and lower quadrants. ABSENT: distended, guarding, mass, organomegaly, rebound Extremities exam: ABSENT: pedal edema Neurological exam: PRESENT: alert, awake, oriented to person, oriented to place, oriented to time, oriented to situation, CN II-XII grossly intact. ABSENT: motor sensory deficit Psychiatric exam: PRESENT: appropriate affect, normal mood. ABSENT: homicidal ideation, suicidal ideation Skin exam: PRESENT: dry, warm Results Laboratory Results: 01/25/19 04:10 01/25/19 04:10 Impressions: Abdomen/Pelvis CT 01/23/19 00:00 IMPRESSION: Limited study due to lack of intra or retroperitoneal fat. There i s a small amount of free fluid the pelvis. This is nonspecific. No CT evidence of acute pancreatitis. Assessment & Plan - Diagnosis (1) Acute pancreatitis Qualifiers: Acute pancreatitis complication: unspecified Is this a current diagnosis for this admission?: Yes (2) HTN (hypertension) Qualifiers: Hypertension type: essential hypertension Qualified Code(s): I10 - Essential (primary) hypertension Is this a current diagnosis for this admission?: Yes (3) Diabetes mellitus type 2 in obese Is this a current diagnosis for this admission?: Yes (4) GERD (gastroesophageal reflux disease) Qualifiers: Esophagitis presence: esophagitis presence not specified Qualified Code(s): K21.9 - Gastro-esophageal reflux disease without esophagitis Is this a current diagnosis for this admission?: Yes (5) Depression Qualifiers: Depression Type: unspecified Qualified Code(s): F32.9 - Major depressive disorder, single episode, unspecified Is this a current diagnosis for this admission?: Yes (6) Migraine aura without headache Is this a current diagnosis for this admission?: Yes - Time Time Spent with patient: 35 or more minutes Level of Care: IMCU Medications reviewed and adjusted accordingly: Yes Anticipated discharge: Home Within: Other - Inpatient Certification Based on my medical assessment, after consideration of the patient's c omorbidities, presenting symptoms, or acuity I expect that the services needed warrant INPATIENT care.: Yes I certify that my determination is in accordance with my understanding of Medicare's requirements for reasonable and necessary INPATIENT services [42 CFR 412.3e].: Yes Medical Necessity: Significant Comorbidiites Make Outpatient Treatment Too Risky, Need Close Monitoring Due to Risk of Patient Decompensation, Need For IV Fluids, Need For Continuous Telemetry Monitoring, Need for Pain Control, Risk of Complication if Not Cared For in Hospital, Risk of Diagnosis Which Will Require Inpatient Eval/Care/Monitoring Post Hospital Care: D/C Campaign Marketing Manager Documentation - Plan Summary Plan Summary: Start on Simethicone 120 mg po qpchs for reported excess gas and distention. Continue current medication management. Advance diet to mechanical soft consistency as tolerated. Follow up on GI consultation with Dr. Rosenthal for possible endoscopic evaluation in view if her surgical history including gastric bypass and concern for gastric ulceration.
--- NOTE | 2019-01-26 21:52 | PDOC PROGRESS REPORT ---
Subjective Progress Note for:: 01/26/19 Subjective:: Patient reported persistent abdominal bloating and excess gas discomfort, abdominal pain and episodes of nausea. She denied vomiting. No bowel movement but admitted to poor po intake. No fever or chills. No chest pain or difficulty with breathing. Reason For Visit: PERSISTENT ABDOMINAL PAIN, NAUSEA, ACUTE PANCREATI Physical Exam Vital Signs: Temp Pulse Resp BP Pulse Ox 98.2 F 68 16 110/78 100 01/26/19 11:19 01/26/19 14:00 01/26/19 11:19 01/26/19 11:19 01/26/19 11:19 Intake & Output 01/25/19 01/26/19 01/27/19 06:59 06:59 06:59 Intake Total 4968 3335 1280 Balance 4968 3335 1280 Weight 80.7 kg 80.3 kg Physical Exam: General appearance: PRESENT: no acute distress Head exam: PRESENT: atraumatic, normocephalic Eye exam: PRESENT: conjunctiva pink. ABSENT: pallor, scleral icterus Ear exam: PRESENT: normal external ear exam Mouth exam: PRESENT: moist Respiratory exam: PRESENT: clear to auscultation julissa Cardiovascular exam: PRESENT: RRR. ABSENT: diastolic murmur, rubs, systolic murmur GI/Abdominal exam: PRESENT: normal bowel sounds, soft, tenderness - epigastric and lower quadrants. ABSENT: distended, guarding, mass, organomegaly, rebound Extremities exam: ABSENT: pedal edema Neurological exam: PRESENT: alert, awake, oriented to person, oriented to place, oriented to time, oriented to situation, CN II-XII grossly intact. ABSENT: motor sensory deficit Psychiatric exam: PRESENT: appropriate affect, normal mood. ABSENT: homicidal ideation, suicidal ideation Skin exam: PRESENT: dry, warm Results Laboratory Results: 01/25/19 04:10 01/25/19 04:10 Impressions: Abdomen/Pelvis CT 01/23/19 00:00 IMPRESSION: Limited study due to lack of intra or retroperitoneal fat. There is a small amount of free fluid the pelvis. This is nonspecific. No CT evidence of acute pancreatitis. Assessment & Plan - Diagnosis (1) Acute pancreatitis Qualifiers: Acute pancreatitis complication: unspecified Is this a current diagnosis for this admission?: Yes (2) HTN (hypertension) Qualifiers: Hypertension type: essential hypertension Qualified Code(s): I10 - Essential (primary) hypertension Is this a current diagnosis for this admission?: Yes (3) Diabetes mellitus type 2 in obese Is this a current diagnosis for this admission?: Yes (4) GERD (gastroesophageal reflux disease) Qualifiers: Esophagitis presence: esophagitis presence not specified Qualified Code(s): K21.9 - Gastro-esophageal reflux disease without esophagitis Is this a current diagnosis for this admission?: Yes (5) Depression Qualifiers: Depression Type: unspecified Qualified Code(s): F32.9 - Major depressive disorder, single episode, unspecified Is this a current diagnosis for this admission?: Yes (6) Migraine aura without headache Is this a current diagnosis for this admission?: Yes - Time Time Spent with patient: 35 or more minutes Level of Care: IMCU Medications reviewed and adjusted accordingly: Yes Anticipated discharge: Home Within: Other - Inpatient Certification Based on my medical assessment, after consideration of the patient's comorbidities, presenting symptoms, or acuity I expect that the services needed warrant INPATIENT care.: Yes I certify that my determination is in accordance with my understanding of Medicare's requirements for reasonable and necessary INPATIENT services [42 CFR 412.3e].: Yes Medical Necessity: Significant Comorbidiites Make Outpatient Treatment Too Risky, Need Close Monitoring Due to Risk of Patient Decompensation, Need For IV Fluids, Need For Continuous Telemetry Monitoring, Need for Pain Control, Risk of Complication if Not Cared For in Hospital, Risk of Diagnosis Which Will Require Inpatient Eval/Care/Monitoring Post Hospital Care: D/C Clinical Law Professor Documentation - Plan Summary Plan Summary: Follow up on GI consultation with Dr. Rosenthal. I discussed case with him tonight. Possible endoscopic evaluation tomorrow. Continue current medication management.
[2019-01-27] MEDS: SIMETHICONE 80 MG TAB.CHEW PO SCH ×5 (00:03→21:17)
[2019-01-27] MEDS: INSULIN LISPRO 100 UNIT/ML 3 ML VIAL SUBCUT SCH ×6 (00:03→21:15)
[2019-01-27] MEDS: OXYCODONE-ACETAMINOPHEN 5-325 MG TABLET PO PRN ×2 (00:05→21:24)
[2019-01-27] MEDS ORDERED: PEG 3350/NA SULF,BICARB,CL/KCL 4000 ML ONE (02:40)
[2019-01-27] MEDS ORDERED: PEG 3350/NA SULF,BICARB,CL/KCL 4000 ML PO ONE (07:00)
[2019-01-27] MEDS: PANTOPRAZOLE SODIUM 40 MG TABLET.DR PO SCH (09:12)
[2019-01-27] MEDS: ENOXAPARIN SODIUM INJ 40 MG/0.4 ML DISP.SYRIN SUBCUT SCH (09:23)
[2019-01-27] MEDS: DEXTROSE 5%-1/2 NORMAL SALINE 1,000 ML IV PRN (10:13)
[2019-01-27] MEDS ORDERED: DIPHENHYDRAMINE HCL 50 MG/ML VIAL ONE (13:59)
[2019-01-27] MEDS ORDERED: NALOXONE HCL INJ/PF 0.4 MG/1 ML SDV ONE (13:59)
[2019-01-27] MEDS ORDERED: ONDANSETRON HCL INJ/PF 4 MG/2 ML SDV ONE (13:59)
[2019-01-27] MEDS ORDERED: FLUMAZENIL INJ 0.5 MG/5 ML VIAL ONE (14:00)
[2019-01-27] MEDS ORDERED: EPINEPHRINE INJ 1 MG/10 ML DISP.SYRIN ONE (14:00)
[2019-01-27] MEDS ORDERED: GLUCAGON,HUMAN RECOMB 1 MG INJ ONE (14:00)
[2019-01-27] MEDS: MIDAZOLAM 2 MG/2 ML INJ ONE ×3 (15:02→15:18)
[2019-01-27] MEDS: FENTANYL CITRATE INJ/PF 100 MCG/2 ML AMPUL ONE ×2 (15:04→15:40)
--- NOTE | 2019-01-27 15:43 | PDOC CONSULTATION ---
Consultation Consult Date: 01/26/19 Provider Consulted: TERRANCE HERMAN History of Present Illness Admission Date/PCP: 01/25/19 20:57 NGUYỄN RUBIN History of Present Illness: JESUS HER is a 39 year old femalePatient who was admitted on 01/25/2019 with abdominal pain. She has a chronic history of abdominal pain and fossa-2008 with similar complaints. She was last seen in my office in 2013. Previous EGD and colonoscopy have been unremarkable and she has been diagnosed with IBS. Her pain has been worsening lately. She has pain every day, with or without eating and lasting between 5 minutes and many hours. She has some nausea but no vomiting. Her bowels has been alternating between diarrhea and constipation and has been like this for many years. She has a history of depression. She was seen at the emergency room on 01/18/2019 with similar illness and her lipase was slightly elevated at 518. LFTs were normal and CBC was normal though she has developed a slight thrombocytopenia since admission. His CT scan of her abdomen and pelvis on 01/23/2019 showed no evidence of pancreatitis. There was small amount of free fluid in the pelvis. Past Medical History Cardiac Medical History: Reports: Hypertension Neurological Medical History: Reports: Migraine Denies: Seizures Endocrine Medical History: Reports: Diabetes Mellitus Type 2 GI Medical History: Reports: Gastroesophageal Reflux Disease Psychiatric Medical History: Reports: Depression Hematology: Reports: Anemia Past Surgical History Past Surgical History: Reports: Cholecystectomy, Gastric Bypass Surgery Denies: Hysterectomy Social History Smoking Status: Former Smoker Electronic Cigarette use?: No Last Time Smoked: 2017. Frequency of Alcohol Use: Rare Hx Recreational Drug Use: No Drugs: None Hx Prescription Drug Abuse: No - Advance Directive Resuscitation Status: Full Code Family History Family History: Reviewed & Not Pertinent Parental Family History Reviewed: No Children Family History Reviewed: NA Sibling(s) Family History Reviewed.: NA Medication/Allergy Home Medications: Ascorbic Acid [Vitamin C 500 mg Tablet] 500 mg PO DAILY 01/23/19 Duloxetine HCl [Cymbalta 30 mg Capsule.] 60 mg PO DAILY 01/23/19 Multivitamin [Tab-A-Nereida (Multiple Vitamin) Tablet] 1 tab PO DAILY 01/23/19 Pregabalin 75 mg PO Q12 01/23/19 Ubidecarenone/Vit E Acet [Co Q-10 100 mg Softgel] 1 cap PO DAILY 01/23/19 Vitamin E (Dl, Acetate) [Vitamin E 400 Unit Capsule] 400 unit PO DAILY 01/23/19 Allergies/Adverse Reactions: sertraline HCl [From Zoloft] Allergy (Verified 02/28/13 14:37) Hives, shortness of breath, diarrhea, vomiting, chest pain Review of Systems All systems: reviewed and no additional remarkable complaints except as stated Physical Exam Vital Signs: Temp Pulse Resp BP Pulse Ox 97.6 F 64 18 110/65 100 01/27/19 14:30 01/27/19 15:35 01/27/19 15:35 01/27/19 15:35 01/27/19 15:35 Intake & Output 01/26/19 01/27/19 01/28/19 06:59 06:59 06:59 Intake Total 3335 2520 Balance 3335 2520 Weight 80.3 kg 81.3 kg Exam: General: Patient is alert and looks well. HEENT: There is no pallor or jaundice. PERRLA. Oropharynx normal Respiratory: No chest deformity. No respiratory distress. Chest wall palpitation was unremarkable. Breath sounds were normal Cardiovascular: Heart sounds 1 and 2 normal with no murmurs. Abdominal: Not distended. Soft and nontender. Liver and spleen not palpable. No ascites demonstrated. Bowel sounds active. Rectal examination was deferred. Extremities: No edema Neurological: Alert and oriented x4. Grossly nonfocal. Normal speech Skin: No significant rash Psychological: Normal affect Results Laboratory Results: 01/25/19 04:10 01/25/19 04:10 Impressions: Abdomen/Pelvis CT 01/23/19 00:00 IMPRESSION: Limited study due to lack of intra or retroperitoneal fat. There is a small amount of free fluid the pelvis. This is nonspecific. No CT evidence of acute pancreatitis. Assessment & Plan - Diagnosis (1) Abdominal pain Is this a current diagnosis for this admission?: Yes Plan: She has chronic abdominal pain which I suspect is from her irritable bowel syndrome. She has been having more pain lately and other pathologies will need to be ruled out by EGD and colonoscopy. I will suggest an anticholinergic if her endoscopies are unremarkable in addition to fiber supplements. An antianxiety/depression may also be useful (2) Irritable bowel syndrome (IBS) Qualifiers: Irritable bowel syndrome type: with both diarrhea and constipation Qualified Code(s): K58.2 - Mixed irritable bowel syndrome Is this a current diagnosis for this admission?: Yes Plan: Use fiber supplements every day (3) Nausea Is this a current diagnosis for this admission?: Yes (4) Elevated lipase Is this a current diagnosis for this admission?: Yes Plan: I doubt any clinical significance to her slightly elevated lipase especially with her chronic symptoms and unremarkable CAT scan
--- NOTE | 2019-01-27 15:46 | Operative Report ---
Operative Report DATE OF SURGERY: 01/27/19 Operative Report: Pre-op diagnosis: Abdominal pain Post-op diagnosis: 1. Normal EGD status post gastric bypass 2. Polyps in the sigmoid colon 3. Internal hemorrhoids Surgery: Upper endoscopy biopsy and Colonoscopy and polypectomy Medications: Versed 4mg, Fentanyl 150mcg IV push Tissue removed: Gastric remnant biopsy and colon polyp Procedure: After informed consent obtained from patient, patient's pharynx was sprayed with Hurricane and conscious sedation was achieved. The upper endoscope was then inserted into the esophagus under direct vision and advanced into the stomach and further into the jejunum. The jejunum was examined up to 20 cm. A digital rectal examination was performed and this was unremarkable. The colonoscope was inserted into the rectum and advanced to the cecum. The appendiceal orifice and the terminal ileum were both identified. The mucosa was examined into details as the colonoscope was slowly pulled out of the patient. The endoscope was retroflexed in the rectum. Patient tolerated the procedure well. Findings Esophagus: Normal Gastric remnant: Normal with normal anastomosis Cecum: Normal Ascending colon: Normal Transverse colon: Normal Descending colon: Normal Sigmoid colon: Two 4 mm polyps removed with a cold snare Rectum: Normal except for internal hemorrhoids Plan: Await pathology. Start patient on Robinul Forte 1 twice a day for the next month or 2 and then as needed. Fiber supplements twice a day. Consider low-dose antidepressant OPERATION: .
[2019-01-27] MEDS ORDERED: DEXTROSE 50%-WATER 25 GM/50 ML DISP.SYRIN IV PRN ×2 (18:16)
[2019-01-27] MEDS ORDERED: GLUCAGON,HUMAN RECOMB 1 MG INJ IM PRN (18:16)
[2019-01-27] MEDS ORDERED: DEXTROSE 40% GEL 15 GM TUBE PO PRN ×2 (18:16)
[2019-01-27] MEDS: GLYCOPYRROLATE 1 MG TABLET PO SCH (18:38)
[2019-01-27] MEDS: VENLAFAXINE HCL 37.5 MG CAP.SR.24H PO SCH (18:38)
--- NOTE | 2019-01-27 18:39 | PDOC PROGRESS REPORT ---
Subjective Progress Note for:: 01/27/19 Subjective:: Patient is post EGD and Colonoscopy with normal upper and sigmoid polypectomy. Patient reported abdominal discomfort and pain. No nausea or vomiting. No fever or chills. No chest pain or difficulty with breathing. Reason For Visit: PERSISTENT ABDOMINAL PAIN, NAUSEA, ACUTE PANCREATI Physical Exam Vital Signs: Temp Pulse Resp BP Pulse Ox 98.1 F 59 L 20 118/83 99 01/27/19 16:00 01/27/19 16:00 01/27/19 16:00 01/27/19 16:00 01/27/19 16:00 Intake & Output 01/26/19 01/27/19 01/28/19 06:59 06:59 06:59 Intake Total 3335 2520 300 Balance 3335 2520 300 Weight 80.3 kg 81.3 kg Physical Exam: General appearance: PRESENT: no acute distress Head exam: PRESENT: atraumatic, normocephalic Eye exam: PRESENT: conjunctiva pink. ABSENT: pallor, scleral icterus Ear exam: PRESENT: normal external ear exam Mouth exam: PRESENT: moist Respiratory exam: PRESENT: clear to auscultation julissa Cardiovascular exam: PRESENT: RRR. ABSENT: diastolic murmur, rubs, systolic murmur GI/Abdominal exam: PRESENT: normal bowel sounds, soft, nonspecific tenderness - epigastric and lower quadrants to palpation. ABSENT: distended, guarding, mass, organomegaly, rebound Extremities exam: ABSENT: pedal edema Neurological exam: PRESENT: alert, awake, oriented to person, oriented to place, oriented to time, oriented to situation, CN II-XII grossly intact. ABSENT: motor sensory deficit Psychiatric exam: PRESENT: appropriate affect, normal mood. ABSENT: homicidal ideation, suicidal ideation Skin exam: PRESENT: dry, warm Results Laboratory Results: 01/25/19 04:10 01/25/19 04:10 Impressions: Abdomen/Pelvis CT 01/23/19 00:00 IMPRESSION: Limited study due to lack of intra or retroperitoneal fat. There is a small amount of free fluid the pelvis. This is nonspecific. No CT evidence of acute pancreatitis. Assessment & Plan - Diagnosis (1) Abdominal pain Qualifiers: Abdominal location: left upper quadrant Qualified Code(s): R10.12 - Left upper quadrant pain Is this a current diagnosis for this admission?: Yes Plan: Also, patient reported epigastric region pain with associated nausea but no vo miting upon presentation. Agreed that her clinical evaluation with laboratory and radiographic did no support acute pancreatitis since her admission. With her EGD findings, her symptoms are more likely due to IBS with variable bowel movement. She will be started on Robinul Forte , Fibersource, and Effexor XR therapy. (2) Elevated lipase Is this a current diagnosis for this admission?: Yes Plan: In normal range presently. Probably related to her GI symptoms. (3) Nausea Is this a current diagnosis for this admission?: Yes Plan: Continue IV Zofran therapy. Advance diet to regular consistency. D/C IV fluid. (4) Irritable bowel syndrome (IBS) Qualifiers: Irritable bowel syndrome type: with both diarrhea and constipation Qualified Code(s): K58.2 - Mixed irritable bowel syndrome Is this a current diagnosis for this admission?: Yes Plan: As noted above, started on Rubinol Forte, Fibersource and Effexor XR therapy s per GI recommendations. (5) HTN (hypertension) Qualifiers: Hypertension type: essential hypertension Qualified Code(s): I10 - Essential (primary) hypertension Is this a current diagnosis for this admission?: Yes (6) Diabetes mellitus type 2 in obese Is this a current diagnosis for this admission?: Yes Plan: Change accuchek to qachs with Humalog insulin coverage. (7) GERD (gastroesophageal reflux disease) Qualifiers: Esophagitis presence: esophagitis presence not specified Qualified Code(s): K21.9 - Gastro-esophageal reflux disease without esophagitis Is this a current diagnosis for this admission?: Yes (8) Depression Qualifiers: Depression Type: unspecified Qualified Code(s): F32.9 - Major depressive disorder, single episode, unspecified Is this a current diagnosis for this admission?: Yes Plan: Start o Effexor XR 37.5 mg p.o daily. (9) Migraine aura without headache Is this a current diagnosis for this admission?: Yes - Time Time Spent with patient: 25-34 minutes Level of Care: IMCU Anticipated discharge: Home Within: Other - Inpatient Certification Based on my medical assessment, after consideration of the patient's comorbidities, presenting symptoms, or acuity I expect that the services needed warrant INPATIENT care.: Yes I certify that my determination is in accordance with my understanding of Medicare's requirements for reasonable and necessary INPATIENT services [42 CFR 412.3e].: Yes Medical Necessity: Significant Comorbidiites Make Outpatient Treatment Too Risky, Need Close Monitoring Due to Risk of Patient Decompensation, Need For Continuous Telemetry Monitoring, Risk of Complication if Not Cared For in Hospital, Risk of Diagnosis Which Will Require Inpatient Eval/Care/Monitoring Post Hospital Care: D/C Delivery Coordinator Documentation - Plan Summary Plan Summary: See attending physician orders for details about care plan. Possible discharge home tomorrow.
[2019-01-27] MEDS ORDERED: LORAZEPAM INJ 2 MG/1 ML VIAL IV ONE (21:30)
[2019-01-28] MEDS: INSULIN LISPRO 100 UNIT/ML 3 ML VIAL SUBCUT SCH (07:54)
[2019-01-28] MEDS ORDERED: VITAMIN E (DL, ACETATE) 400 UNIT CAPSULE PO SCH (10:00)
[2019-01-28] MEDS ORDERED: MULTIVITAMIN TABLET PO SCH (10:00)
[2019-01-28] MEDS ORDERED: ASCORBIC ACID 500 MG TABLET PO SCH (10:00)
[2019-01-28] MEDS ORDERED: (PENDING PHARMACY ID) (Ubidecarenone/Vit E Acet [Co Q-10 100 Mg Softgel] 1 CAP) PO SCH (10:00)
[2019-01-28] MEDS: SIMETHICONE 80 MG TAB.CHEW PO SCH (10:10)
[2019-01-28] MEDS: PANTOPRAZOLE SODIUM 40 MG TABLET.DR PO SCH (10:11)
[2019-01-28] MEDS: GLYCOPYRROLATE 1 MG TABLET PO SCH (10:11)
[2019-01-28] MEDS: VENLAFAXINE HCL 37.5 MG CAP.SR.24H PO SCH (10:11)
[2019-01-28] MEDS: ENOXAPARIN SODIUM INJ 40 MG/0.4 ML DISP.SYRIN SUBCUT SCH (10:11)
--- NOTE | 2019-01-28 10:42 | PDOC DISCHARGE SUMMARY ---
Impression - Admit/DC Date/PCP Admission Date/Primary Care Provider: 01/25/19 20:57 NGUYỄN RUBIN Discharge Date: 01/28/19 - Discharge Diagnosis (1) Abdominal pain Is this a current diagnosis for this admission?: Yes (2) Elevated lipase Is this a current diagnosis for this admission?: Yes (3) Nausea Is this a current diagnosis for this admission?: Yes (4) Irritable bowel syndrome (IBS) Is this a current diagnosis for this admission?: Yes (5) HTN (hypertension) Is this a current diagnosis for this admission?: Yes (6) Diabetes mellitus type 2 in obese Is this a current diagnosis for this admission?: Yes (7) GERD (gastroesophageal reflux disease) Is this a current diagnosis for this admission?: Yes (8) Depression Is this a current diagnosis for this admission?: Yes (9) Migraine aura without headache Is this a current diagnosis for this admission?: Yes - Assessment Summary: Patient was admitted for concern about possible acute pancreatitis due to her presenting symptoms including abdominal pain, nausea, and elevated serum Lipase level. She is s/p gastric bypass surgery. She was managed with dietary restriction ad IV fluid support as well as IV nausea and pain management. Her serum Lipase quickly resolved to normal but her abdominal pain persist. Her CT scan abdomen and pelvis was devoid of any acute pathologic process except small free fluid in the pelvic region. She had consultation with Dr. Rosenthal, ironer machine, and eventual EGD and colonoscopy evaluation that revealed normal EGD findings and sigmoid polyp and performed polypectomy. There was concern for possible IBS with variable bowel movement. It was recommended to start on Robinul Forte, supplemental Fiber and low dose anti depressant therapy. She will be discharge home today and follow up with Dr Rosenthal and myself as instructed upon discharge. - Additional Information Resuscitation Status: Full Code Discharge Diet: Cardiac, Diabetic Discharge Activity: Activity As Tolerated Referrals: NGUYỄN RUBIN MD [Primary Care Provider] - 02/08/19 1:00 pm TERRANCE ROSENTHAL MD [ACTIVE STAFF] - Prescriptions: Venlafaxine HCl ER [Effexor Xr 37.5 mg Cap.sr] 37.5 mg PO DAILY #30 cap.sr.24h Simethicone [Mylicon 80 mg Chewable Tablet] 120 mg PO PCHS #120 tab.chew Glycopyrrolate [Robinul Forte 1 mg Tablet] 1 mg PO BID #60 tablet Home Medications: Ascorbic Acid [Vitamin C 500 mg Tablet] 500 mg PO DAILY 01/23/19 Multivitamin [Tab-A-Nereida (Multiple Vitamin) Tablet] 1 tab PO DAILY 01/23/19 Ubidecarenone/Vit E Acet [Co Q-10 100 mg Softgel] 1 cap PO DAILY 01/23/19 Vitamin E (Dl, Acetate) [Vitamin E 400 Unit Capsule] 400 unit PO DAILY 01/23/19 Glycopyrrolate [Robinul Forte 1 mg Tablet] 1 mg PO BID #60 tablet 01/28/19 Simethicone [Mylicon 80 mg Chewable Tablet] 120 mg PO PCHS #120 tab.chew 01/28/19 Venlafaxine HCl ER [Effexor Xr 37.5 mg Cap.sr] 37.5 mg PO DAILY #30 cap.sr.24h 01/28/19 History of Present Illiness History of Present Illness: JESUS HER is a 39 year old female patient known to my practice who presented to the office earlier today as per directive from her recent ED visit on 01/18/19 for abdominal pain, nausea, and intermittent episodes of vomiting. Her elevation in the ED revealed ongoing symptoms for about 6 days prior to her presentation and self medicating with [id number] medication including Mylanta, Pepto-Bismol, and Leonor-Spencer without benefit. Patient reported concern about flare up of her IBS with diarrhea for which she took Xifaxan without relief. She reported to the office today with compliant about no symptom relief and worsening abdominal pain, poor appetite, nausea, and occasional vomiting. She denied any fever but admitted to chills. No diaphoresis. Her ED visit did revealed elevated serum lipase level. I was concern about worsening acute pancreatitis and she was advised hospitalization for further evaluation and management. She denied any alcohol, unusual food or liquid intake, or illicit drug ingestion. Her morbidities are as listed below. Hospital Course Hospital Course: Patient was admitted for concern about possible acute pancreatitis due to her presenting symptoms including abdominal pain, nausea, and elevated serum Lipase level. She is s/p gastric bypass surgery. She was managed with dietary restriction ad IV fluid support as well as IV nausea and pain management. Her serum Lipase quickly resolved to normal but her abdominal pain persist. Her CT scan abdomen and pelvis was devoid of any acute pathologic process except small free fluid in the pelvic region. She had consultation with Dr. Rosenthal, ironer machine, and eventual EGD and colonoscopy evaluation that revealed normal EGD findings and sigmoid polyp and performed polypectomy. There was concern for possible IBS with variable bowel movement. It was recommended to start on Robinul Forte, supplemental Fiber and low dose anti depressant therapy. She will be discharge home today and follow up with Dr Rosenthal and myself as instructed upon discharge. Physical Exam Vital Signs: Temp Pulse Resp BP Pulse Ox 97.9 F 72 17 117/76 100 01/28/19 07:12 01/28/19 07:12 01/28/19 07:12 01/28/19 07:12 01/28/19 07:12 Intake & Output 01/27/19 01/28/19 01/29/19 06:59 06:59 06:59 Intake Total 2520 1118 Balance 2520 1118 Weight 81.3 kg 78.9 kg General appearance: PRESENT: no acute distress Head exam: PRESENT: atraumatic, normocephalic Eye exam: PRESENT: conjunctiva pink. ABSENT: pallor, scleral icterus Ear exam: PRESENT: normal external ear exam Mouth exam: PRESENT: moist Respiratory exam: PRESENT: clear to auscultation julissa Cardiovascular exam: PRESENT: RRR. ABSENT: diastolic murmur, rubs, systolic murmur GI/Abdominal exam: PRESENT: normal bowel sounds, soft, nonspecific tenderness - epigastric and lower quadrants to palpation. ABSENT: distended, guarding, mass, organomegaly, rebound Extremities exam: ABSENT: pedal edema Neurological exam: PRESENT: alert, awake, oriented to person, oriented to place, oriented to time, oriented to situation, CN II-XII grossly intact. ABSENT: motor sensory deficit Psychiatric exam: PRESENT: appropriate affect, normal mood. ABSENT: homicidal ideation, suicidal ideation Skin exam: PRESENT: dry, warm Results Laboratory Results: WBC 4.7 10^3/uL (4.0-10.5) 01/25/19 04:10 RBC 3.97 10^6/uL (3.72-5.28) 01/25/19 04:10 Hgb 12.0 g/dL (12.0-15.5) 01/25/19 04:10 Hct 36.1 % (36.0-47.0) 01/25/19 04:10 MCV 91 fl (80-97) 01/25/19 04:10 MCH 30.2 pg (27.0-33.4) 01/25/19 04:10 MCHC 33.2 g/dL (32.0-36.0) 01/25/19 04:10 RDW 14.6 % (11.5-14.0) H 01/25/19 04:10 Plt Count 130 10^3/uL (150-450) L 01/25/19 04:10 Lymph % (Auto) 37.6 % (13-45) 01/25/19 04:10 [place] % (Auto) 11.7 % (3-13) 01/25/19 04:10 Eos % (Auto) 4.7 % (0-6) 01/25/19 04:10 Baso % (Auto) 0.6 % (0-2) 01/25/19 04:10 Absolute Neuts (auto) 2.1 10^3/uL (1.7-8.2) 01/25/19 04:10 Absolute Lymphs (auto) 1.8 10^3/uL (0.5-4.7) 01/25/19 04:10 Absolute Monos (auto) 0.5 10^3/uL (0.1-1.4) 01/25/19 04:10 Absolute Eos (auto) 0.2 10^3/uL (0.0-0.6) 01/25/19 04:10 Absolute Basos (auto) 0.0 10^3/uL (0.0-0.2) 01/25/19 04:10 Seg Neutrophils % 45.4 % (42-78) 01/25/19 04:10 Sodium 138.8 mmol/L (137-145) 01/25/19 04:10 Potassium 3.6 mmol/L (3.6-5.0) 01/25/19 04:10 Chloride 105 mmol/L (98-107) 01/25/19 04:10 Carbon Dioxide 29 mmol/L (22-30) 01/25/19 04:10 Anion Gap 5 (5-19) 01/25/19 04:10 BUN 3 mg/dL (7-20) L 01/25/19 04:10 Creatinine 0.46 mg/dL (0.52-1.25) L 01/25/19 04:10 Est GFR ( Amer) > 60 (>60) 01/25/19 04:10 Est GFR (MDRD) Non-Af > 60 (>60) 01/25/19 04:10 Glucose 92 mg/dL (75-110) 01/25/19 04:10 POC Glucose 99 mg/dL (70-110) 01/28/19 07:10 Calcium 8.8 mg/dL (8.4-10.2) 01/25/19 04:10 Magnesium 1.9 mg/dL (1.6-2.3) 01/24/19 04:13 Total Bilirubin 0.5 mg/dL (0.2-1.3) 01/24/19 04:13 Direct Bilirubin 0.0 mg/dL (0.0-0.4) 01/24/19 04:13 Neonat Total Bilirubin Not Reportable 01/24/19 04:13 Neonat Direct Bilirubin Not Reportable 01/24/19 04:13 Neonat Indirect Bili Not Reportable 01/24/19 04:13 AST 40 U/L (14-36) H 01/24/19 04:13 ALT 23 U/L (<35) 01/24/19 04:13 Alkaline Phosphatase 47 U/L (38-126) 01/24/19 04:13 Total Protein 6.2 g/dL (6.3-8.2) L 01/24/19 04:13 Albumin 3.3 g/dL (3.5-5.0) L 01/24/19 04:13 Amylase 70 U/L (30-110) 01/24/19 04:13 Lipase 178.3 U/L (23-300) 01/25/19 04:10 Urine Color COLORLESS 01/25/19 13:52 Urine Appearance CLEAR 01/25/19 13:52 Urine pH 9.0 (5.0-9.0) 01/25/19 13:52 Ur Specific [place] 1.002 01/25/19 13:52 Urine Protein NEGATIVE mg/dL (NEGATIVE) 01/25/19 13:52 Urine Glucose (UA) NEGATIVE mg/dL (NEGATIVE) 01/25/19 13:52 Urine Ketones NEGATIVE mg/dL (NEGATIVE) 01/25/19 13:52 Urine Blood NEGATIVE (NEGATIVE) 01/25/19 13:52 Urine Nitrite NEGATIVE (NEGATIVE) 01/25/19 13:52 Urine Bilirubin NEGATIVE (NEGATIVE) 01/25/19 13:52 Urine Urobilinogen NEGATIVE mg/dL (<2.0) 01/25/19 13:52 Ur Leukocyte Esterase NEGATIVE (NEGATIVE) 01/25/19 13:52 Urine Bacteria (Auto) TRACE /HPF 01/25/19 13:52 Squamous Epi Cells Auto <1 /HPF 01/25/19 13:52 Urine Mucus (Auto) RARE /LPF 01/25/19 13:52 Urine Ascorbic Acid NEGATIVE (NEGATIVE) 01/25/19 13:52 Impressions: Abdomen/Pelvis CT 01/23/19 00:00 IMPRESSION: Limited study due to lack of intra or retroperitoneal fat. There is a small amount of free fluid the pelvis. This is nonspecific. No CT evidence of acute pancreatitis. Plan Health Concerns: High risk of readmission due to abdominal pain at present unknown origin. Need psychological and psychosocial support due to high stressed home environment. Plan of Treatment: Maintain on recommended treatment as initiated since her EGD and colonoscopy evaluation. Goals: Medication and mental health counseling support. Time Spent: Greater than 30 Minutes Stroke Is this a Stroke Patient?: No Acute Heart Failure - Is this a Heart Failure Patient?: No
[2019-01-28] MEDS ORDERED: INFLUENZA QUAD (6MOS+) 2019-20 VAC 0.5 ML SYR IM ONE (11:34)
[2019-01-28 11:39] VITALS: BP 145/87
== END 2019-01-28 12:15 | disposition home or self-care (01) | DRG 392 ==
LOC: 3N 15:51 → INTOOBSV 20:57 → OBSVTOIN 20:57
PROVIDERS: ADMIT Internal Medicine Geriatric Medicine; ATTEND Internal Medicine Geriatric Medicine
PROC: 0DB88ZX Excision of Small Intestine, Via Natural or Artificial Opening Endoscopic, Diagnostic (ICD-10-PCS; principal; 2019-01-27 14:30)
PROC: 0DB68ZX Excision of Stomach, Via Natural or Artificial Opening Endoscopic, Diagnostic (ICD-10-PCS; 2019-01-27 14:30)
PROC: 3E02340 Introduction of Influenza Vaccine into Muscle, Percutaneous Approach (ICD-10-PCS; 2019-01-28)
DX: K58.2 Mixed irritable bowel syndrome (principal); D69.6 Thrombocytopenia, unspecified; E11.9 Type 2 diabetes mellitus without complications; D64.9 Anemia, unspecified; E66.9 Obesity, unspecified; K63.5 Polyp of colon; I10 Essential (primary) hypertension; K21.9 Gastro-esophageal reflux disease without esophagitis; G43.109 Migraine with aura, not intractable, without status migrainosus; K64.8 Other hemorrhoids; F41.8 Other specified anxiety disorders; G47.00 Insomnia, unspecified; R61 Generalized hyperhidrosis; Z23 Encounter for immunization; Z98.84 Bariatric surgery status; Z87.891 Personal history of nicotine dependence; Z88.8 Allergy status to other drugs, medicaments and biological substances; Z68.27 Body mass index [BMI] 27.0-27.9, adult; Z83.3 Family history of diabetes mellitus; Z82.49 Family history of ischemic heart disease and other diseases of the circulatory system
CPT/HCPCS: 36415; 74177; 80048; 80053; 81001; 82150; 82962; 83690; 83735; 85025; 88305; 90686; G0378; G0379; J0171; J1200; J1610; J1650; J2060; J2250; J2270; J2310; J2405; J3010; J3480; J3490

== ENCOUNTER 2019-04-22 14:43 | Emergency (ER) | payer OTHER ==
[2019-04-22 15:52] LABS: ABSOLUTE LYMPHOCYTES (AUTO) 0.8 10^3/uL (0.5-4.7); ABSOLUTE MONOCYTES (AUTO) 0.9 10^3/uL (0.1-1.4); ABSOLUTE NEUT (AUTO) 9.6 10^3/uL (1.7-8.2); BASOPHILS % (AUTO) 0.2 % (0-2); EOSINOPHILS % (AUTO) 0.1 % (0-6); HEMATOCRIT 39.3 % (36.0-47.0); HEMOGLOBIN 13.1 g/dL (12.0-15.5); LYMPHOCYTES % (AUTO) 7.4 % (13-45); MEAN CORPUSCULAR HEMOGLOBIN 30.3 pg (27.0-33.4); MEAN CORPUSCULAR HGB CONC 33.3 g/dL (32.0-36.0); MEAN CORPUSCULAR VOLUME 91 fl (80-97); MONOCYTES % (AUTO) 7.5 % (3-13); PLATELET COUNT 151 10^3/uL (150-450); RED BLOOD COUNT 4.31 10^6/uL (3.72-5.28); RED CELL DISTRIBUTION WIDTH 15.3 % (11.5-14.0); SEGMENTED NEUTROPHILS % (AUTO) 84.8 % (42-78); TOTAL CELLS COUNTED % (AUTO) 100 %; WHITE BLOOD COUNT 11.3 10^3/uL (4.0-10.5)
[2019-04-22 16:05] LABS: ALBUMIN 4.7 g/dL (3.5-5.0); ALKALINE PHOSPHATASE 70 U/L (38-126); ANION GAP 10 (5-19); ASPARTATE AMINO TRANSFERASE 25 U/L (14-36); BILIRUBIN,DIRECT 0.2 mg/dL (0.0-0.4); BILIRUBIN,TOTAL 0.8 mg/dL (0.2-1.3); BLOOD UREA NITROGEN 10 mg/dL (7-20); CALCIUM 9.8 mg/dL (8.4-10.2); CARBON DIOXIDE 26 mmol/L (22-30); CHLORIDE 103 mmol/L (98-107); CREATINE KINASE 147 U/L (30-135); GLUCOSE 108 mg/dL (75-110); POTASSIUM 3.6 mmol/L (3.6-5.0); TOTAL PROTEIN 8.4 g/dL (6.3-8.2)
[2019-04-22 16:18] LABS: CREATINE KINASE MB 2.83 ng/mL (<4.55)
[2019-04-22 16:20] LABS: TROPONIN I < 0.012 ng/mL
[2019-04-22 17:12] LABS: APPEARANCE,URINE CLEAR; BILIRUBIN,URINE NEGATIVE (NEGATIVE); COLOR,URINE YELLOW; GLUCOSE, URINE NEGATIVE (NEGATIVE); KETONES,URINE 20 mg/dL (NEGATIVE); LEUKOCYTE ESTERASE,URINE NEGATIVE (NEGATIVE); NITRITE,URINE NEGATIVE (NEGATIVE); PROTEIN,URINE NEGATIVE (NEGATIVE); URINE SPECIFIC GRAVITY 1.009
--- NOTE | 2019-04-22 17:32 | EKG REPORT ---
SEVERITY:- ABNORMAL ECG - SINUS RHYTHM BORDERLINE LEFT AXIS DEVIATION MINIMAL ST DEPRESSION, ANTERIOR LEADS : Confirmed by: Ramila Luna MD 22-Apr-2019 17:31:40
--- NOTE | 2019-04-22 17:39 | ER Document Report ---
ED General - General Chief Complaint: Syncope Stated Complaint: SYNCOPE EPISODE Time Seen by Provider: 04/22/19 17:37 Primary Care Provider: NGUYỄN RUBIN MD [Primary Care Provider] - Follow up as needed Mode of Arrival: Ambulatory Information source: Patient Notes: 39-year-old black female was in room #10 with her mother who is very sick and was just discharged yesterday in the cage unloader hours and then returned today. Patient was sitting in the room on around stool and brother noted that she fell upon her right face to the floor unconscious. Patient's EKG was tachycardic at 96 beats per minute.. Patient is sleeping on my presentation on exam at 1745. Patient has been taking care of her mother at under stress lately because of the illness of her mother. Patient is a diabetic. Patient has been crying a lot lately and feeling quite tired. Patient denied any chest pain fever chills cough cold rhinorrhea dysuria black tarry stools nausea vomiting TRAVEL OUTSIDE OF THE [place] IN LAST 30 DAYS: No - HPI Onset: Other - While in room with mother in bed 10; brother had his back turned to her as he heard her fall on the floor. Patient has no prior history of seizures. - Related Data Allergies/Adverse Reactions: sertraline HCl [From Zoloft] Allergy (Verified 02/28/13 14:37) Hives, shortness of breath, diarrhea, vomiting, chest pain Past Medical History - General Information source: Patient, Relative Cannot obtain history due to: Other - Sleeping - Social History Smoking Status: Unknown if Ever Smoked Cigarette use (# per day): No Chew tobacco use (# tins/day): No Smoking Education Provided: No Frequency of alcohol use: None Drug Abuse: None Lives with: Family Family History: Reviewed & Not Pertinent - Past Medical History Cardiac Medical History: Reports: Hx Hypertension Neurological Medical History: Reports: Hx Migraine. Denies: Hx Seizures Endocrine Medical History: Reports: Hx Diabetes Mellitus Type 2 GI Medical History: Reports: Hx Gastroesophageal Reflux Disease Psychiatric Medical History: Reports: Hx Depression Past Surgical History: Reports: Hx Breast Surgery - lumpectomy left breast, Hx Cholecystectomy, Hx Gastric Bypass Surgery. Denies: Hx Hysterectomy - Immunizations Hx Diphtheria, Pertussis, Tetanus Vaccination: Yes - 2008 Review of Systems - Review of Systems Constitutional: See HPI, Malaise, Weakness EENT: See HPI, Vertigo - Right facial erythema status post fall tender to palpation, Other Cardiovascular: No symptoms reported Respiratory: No symptoms reported Gastrointestinal: No symptoms reported Genitourinary: No symptoms reported Female Genitourinary: No symptoms reported Musculoskeletal: No symptoms reported Skin: No symptoms reported Hematologic/Lymphatic: No symptoms reported Neurological/Psychological: No symptoms reported Physical Exam - Vital signs Vitals: Temp 98.6 F 04/22/19 18:57 - HEENT Head: Normocephalic, Tenderness, Other - Right facial temporal and right jaw erythema tenderness on palpation Eyes: Normal Conjunctiva: Normal Cornea: Normal Extraocular movements intact: Yes Eyelashes: Normal Pupils: PERRL Mouth/Lips: Normal Mucous membranes: Normal Pharynx: Normal Neck: Normal - Respiratory Respiratory status: No respiratory distress Chest status: Nontender Breath sounds: Normal Chest palpation: Normal - Cardiovascular Rhythm: Regular Heart sounds: Normal auscultation Murmur: No Friction rub: No Nahid's crunch: No - Abdominal Inspection: Normal Distension: No distension Bowel sounds: Normal Tenderness: Nontender Organomegaly: No organomegaly - Back Back: Normal - Extremities General upper extremity: Normal inspection General lower extremity: Normal inspection - Neurological Neuro grossly intact: Yes Cognition: Normal Orientation: AAOx4 Carlos Coma Scale Eye Opening: Spontaneous [place] Coma Scale Verbal: Oriented [place] Coma Scale Motor: Obeys Commands Carlos Coma Scale Total: 15 Speech: Normal Cranial nerves: Normal Cerebellar coordination: Normal Motor strength normal: LUE - Please note this was after patient awakened, RUE, LLE, RLE - Psychological Associated symptoms: Anxious - Skin Skin Temperature: Warm Skin Moisture: Dry - I reexamined this patient when she returned from CT and was awake and she was fully oriented x4 cranial nerves II through XII intact patient denies any neck pain cephalgia but does admit to being under stress because of mother. She also reports she has had no sleep for over 24 to 36 hours. She had some flight of ideas and reports she has not been eating or drinking much because she has been taking care of mother. Course - Vital Signs Vital signs: Temp Pulse Resp BP Pulse Ox 98.6 F 04/22/19 18:57 - Laboratory Result Diagrams: 04/22/19 15:24 04/22/19 15:24 Laboratory results interpreted by me: 04/22/19 04/22/19 04/22/19 15:24 15:24 16:21 WBC 11.3 H RDW 15.3 H Lymph % (Auto) 7.4 L Absolute Neuts (auto) 9.6 H Seg Neutrophils % 84.8 H Creatinine 0.40 L Creatine Kinase 147 H Total Protein 8.4 H Urine Ketones 20 H Urine Urobilinogen 4.0 H - Diagnostic Test Radiology reviewed: Reports reviewed - CT is negative Radiology results interpreted by me: 04/22/19 18:57 CT head facial bones neck were read by radiologist - EKG Interpretation by Me EKG shows normal: Sinus rhythm Rate: Tachycardia Rhythm: NSR Critical Care Note - Critical Care Note Total time excluding time spent on procedures (mins): 90 Discharge - Discharge Clinical Impression: Atypical syncope, Urine ketones, Dizziness, Stress at home Condition: Good Disposition: HOME, SELF-CARE Additional Instructions: Follow-up with personal doctor this week return to ER as needed take medicines as directed encourage fluids; take sleep medicines when absolutely necessary Prescriptions: Lorazepam [Ativan 1 mg Tablet] 1 mg PO HSP PRN 7 Days #7 tablet PRN Reason: Lorazepam [Ativan Inj 2 Mg/1 Ml Vial] 2 mg IV NOW #1 vial Referrals: NGUYỄN RUBIN MD [Primary Care Provider] - Follow up as needed
[2019-04-22] MEDS ORDERED: NORMAL SALINE 1000 ML 1,000 ML IV ONE (18:05)
[2019-04-22] MEDS ORDERED: LORAZEPAM INJ 2 MG/1 ML VIAL IV ONE (19:09)
--- NOTE | 2019-04-22 19:25 | RADIOLOGY REPORT (SQ) ---
EXAM DESCRIPTION: CT FACIAL AREA WITHOUT COMPLETED DATE/TIME: 04/22/2019 6:39 pm REASON FOR STUDY: syncopy COMPARISON: None. TECHNIQUE: Noncontrasted images through the facial bones and orbits windowed for bone and soft tissu e. Additional coronal and sagittal reconstructed images reviewed. All images stored on PACS. All CT scanners at this facility use dose modulation, iterative reconstruction, and/or weight based d osing when appropriate to reduce radiation dose to as low as reasonably achievable (ALARA). [facility]: Dose Right [facility]: CareDose [facility]: Dose Right [facility]: Teradose 4D [facility]: [employer] RADIATION DOSE: CT Rad equipment meets quality standard of care and radiation dose reduction techniq ues were employed. CTDIvol: 30.4 mGy. DLP: 676 mGy-cm. mGy. LIMITATIONS: None. FINDINGS: FACIAL BONES: No fracture or bone lesion. ORBITS: Intact. No fracture. Symmetric intact globes and retroorbital soft tissues. PARANASAL SINUSES: Clear. No significant mucosal thickening, mass or fluid. No nasal polyps. Maxill helen sinus outlets are patent. SOFT TISSUES: No mass or edema. INFERIOR BRAIN: Limited view. No acute findings. OTHER: No other significant finding. IMPRESSION: NO ACUTE FINDINGS. TECHNICAL DOCUMENTATION: JOB ID: [id number] Quality ID # [id number]: Final reports with documentation of one or more dose reduction techniques (e.g., Au tomated exposure control, adjustment of the mA and/or kV according to patient size, use of iterative reconstruction technique) 2010 [employer]- All Rights Reserved Reading location - IP/workstation name: [email or web address]
--- NOTE | 2019-04-22 19:25 | RADIOLOGY REPORT (SQ) ---
EXAM DESCRIPTION: CT CERVICAL SPINE WITHOUT COMPLETED DATE/TIME: 04/22/2019 6:40 pm REASON FOR STUDY: syncopy COMPARISON: None. TECHNIQUE: Axial images acquired through the cervical spine without intravenous contrast. Images re viewed with lung, soft tissue and bone windows. Reconstructed coronal and sagittal MPR images review ed. Images stored on PACS. All CT scanners at this facility use dose modulation, iterative reconstruction, and/or weight based d osing when appropriate to reduce radiation dose to as low as reasonably achievable (ALARA). [facility]: Dose Right [facility]: CareDose [facility]: Dose Right [facility]: Teradose 4D [facility]: [email or web address] RADIATION DOSE: mGy. LIMITATIONS: None. FINDINGS: ALIGNMENT: Anatomic. MINERALIZATION: Normal. VERTEBRAL BODIES: No fractures or dislocation. DISCS: No significant disc disease. FACETS, LATERAL MASSES, POSTERIOR ELEMENTS: No fractures. No dislocation. No acute findings. HARDWARE: None in the spine. VISUALIZED RIBS: No fractures. LUNG APICES AND SOFT TISSUES: No significant or acute findings. OTHER: No other significant finding. IMPRESSION: NO ACUTE OR SIGNIFICANT FINDINGS IN THE CERVICAL SPINE. TECHNICAL DOCUMENTATION: JOB ID: [id number] Quality ID # [id number]: Final reports with documentation of one or more dose reduction techniques (e.g., Au tomated exposure control, adjustment of the mA and/or kV according to patient size, use of iterative reconstruction technique) 2010 [employer]- All Rights Reserved Reading location - IP/workstation name: [email or web address]
--- NOTE | 2019-04-22 19:25 | RADIOLOGY REPORT (SQ) ---
EXAM DESCRIPTION: CT HEAD WITHOUT COMPLETED DATE/TIME: 04/22/2019 6:40 pm REASON FOR STUDY: syncopy COMPARISON: None. TECHNIQUE: Axial images acquired through the brain without intravenous contrast. Images reviewed wi th bone, brain and subdural windows. Additional sagittal and coronal reconstructions were generated. Images stored on PACS. All CT scanners at this facility use dose modulation, iterative reconstruction, and/or weight based d osing when appropriate to reduce radiation dose to as low as reasonably achievable (ALARA). [facility]: Dose Right [facility]: CareDose [facility]: Dose Right [facility]: Teradose 4D [facility]: [email or web address] RADIATION DOSE: CT Rad equipment meets quality standard of care and radiation dose reduction techniq ues were employed. CTDIvol: 53.2 mGy. DLP: 911 mGy-cm. mGy. LIMITATIONS: None. FINDINGS: VENTRICLES: Normal size and contour. CEREBRUM: No masses. No hemorrhage. No midline shift. No evidence for acute infarction. Normal gra y/white matter differentiation. No areas of low density in the white matter. CEREBELLUM: No masses. No hemorrhage. No alteration of density. No evidence for acute infarction. EXTRAAXIAL SPACES: No fluid collections. No masses. ORBITS AND GLOBE: No intra- or extraconal masses. Normal contour of globe without masses. CALVARIUM: No fracture. PARANASAL SINUSES: No fluid or mucosal thickening. SOFT TISSUES: No mass or hematoma. OTHER: No other significant finding. IMPRESSION: NORMAL BRAIN CT WITHOUT CONTRAST. EVIDENCE OF ACUTE STROKE: NO. COMMENT: Quality ID # [id number]: Final reports with documentation of one or more dose reduction techniques (e.g., Automated exposure control, adjustment of the mA and/or kV according to patient size, use of iterative reconstruction technique) TECHNICAL DOCUMENTATION: JOB ID: [id number] 2010 [employer]- All Rights Reserved Reading location - IP/workstation name: [email or web address]
[2019-04-22 19:57] VITALS: BP 142/92
[2019-04-22 20:58] LABS: URINE AMPHETAMINES SCREEN NEGATIVE; URINE BARBITURATES SCREEN NEGATIVE; URINE BENZODIAZEPINES SCREEN NEGATIVE; URINE COCAINE SCREEN NEGATIVE; URINE METHADONE SCREEN NEGATIVE; URINE PHENCYCLIDINE SCREEN NEGATIVE
[2019-04-22 20:59] LABS: URINE MARIJUANA (THC) SCREEN UNCONFIRMED POSITIVE
== END 2019-04-22 20:11 | disposition home or self-care (01) ==
LOC: ER 14:43
DX: R55 Syncope and collapse (principal); R82.4 Acetonuria; R42 Dizziness and giddiness; F43.9 Reaction to severe stress, unspecified; R53.81 Other malaise; R53.1 Weakness; R00.0 Tachycardia, unspecified; L53.9 Erythematous condition, unspecified; W08.XXXA Fall from other furniture, initial encounter; Y92.239 Unspecified place in hospital as the place of occurrence of the external cause; I10 Essential (primary) hypertension; E11.9 Type 2 diabetes mellitus without complications; Z88.8 Allergy status to other drugs, medicaments and biological substances
CPT/HCPCS: 93005; 99291; 99292; 96361; 96374; 36415; 82553; 82550; 85025; 80053; 81001; 84484; 80307; 70450; 70486; 72125; 93010; J2060; J7030

== ENCOUNTER → 2019-09-08 | Outpatient (CLI) | payer OTHER ==
--- NOTE | 2019-09-08 09:07 | WOMENS IMAGING REPORT ---
EXAM DESCRIPTION: U/S ABDOMEN TOTAL IMAGES COMPLETED DATE/TIME: 09/08/2019 8:51 am REASON FOR STUDY: R10.13 EPIGASTRIC PAIN R10.13 EPIGASTRIC PAIN COMPARISON: None. TECHNIQUE: Dynamic and static grayscale images acquired of the abdomen and recorded on PACS. Additio nal selected color Doppler and spectral images recorded. Note: Study does not meet criteria for complete doppler/duplex scan LIMITATIONS: None. FINDINGS: PANCREAS: No masses. Visualized pancreatic duct normal caliber. LIVER: No masses. Echotexture normal. LIVER VASCULATURE: Normal directional flow of the main portal vein and hepatic veins. GALLBLADDER: Surgically absent. ULTRASOUND-DETECTED BASSETT'S SIGN: Not applicable. INTRAHEPATIC DUCTS AND COMMON DUCT: CBD and intrahepatic ducts normal caliber. No filling defects. INFERIOR VENA CAVA: Normal flow. AORTA: No aneurysm. RIGHT KIDNEY: Normal size. Normal echogenicity. No solid or suspicious masses. No hydronephros is. No calcifications. LEFT KIDNEY: Normal size. Normal echogenicity. No solid or suspicious masses. No hydronephrosi s. No calcifications. SPLEEN: Normal size. No solid masses. PERITONEAL AND PLEURAL SPACES: No ascites or effusions. OTHER: No other significant finding. IMPRESSION: Prior cholecystectomy. No acute findings. TECHNICAL DOCUMENTATION: JOB ID: [id number] 2010 [employer]- All Rights Reserved Reading location - IP/workstation name: [email or web address]
== END ==
LOC: WI 08:11
PROVIDERS: ATTEND Internal Medicine Gastroenterology
DX: R10.13 Epigastric pain (principal)
CPT/HCPCS: 76700